=== PATIENT | male | born 1955 | race Caucasian/White ===

== ENCOUNTER 2017-03-14 19:58 | Inpatient (IN) ==
[2017-03-14 20:47] LABS: Hematocrit 22.3 % (37.5-50.1); Immature Platelets 28.3 % (1.1-6.1); Mean Corpuscular HGB Conc 30.5 g/dL (31.6-35.5); Mean Corpuscular Volume 98.2 fL (83.0-100.0); Monocytes # 0.8 K/mcL (0.0-1.3); Nucleated Red Blood Cells 6.7 /100 WBC (0); Red Blood Count 2.27 M/mcL (4.19-5.50)
[2017-03-14 20:49] LABS: INR 1.1; Prothrombin Time 11.7 Seconds (9.4-12.1)
[2017-03-14 20:51] LABS: Activated Partial Thrombo Time 25.7 Seconds (26.0-36.0)
[2017-03-14] MEDS ORDERED: Pantoprazole 40 MG VIAL IVP ONE (20:52)
--- NOTE | 2017-03-14 20:53 | Emergency Department Note ---
Disposition Clinical Impression: Thrombocytopenia, External hemorrhoid, bleeding Anemia Qualifiers: Anemia type: other cause Other causes of anemia: other cause, not classified Qualified Code(s): D64.89 - Other specified anemias Disposition: Admitted As Inpatient Recheck wound or abnormal lab - General Chief Complaint: ED Recheck/Abnormal Lab/Rx Stated Complaint: hgb 6.9 Time Seen by Provider: 03/14/17 20:18 Source: patient Limitations: no limitations Nursing Notes Reviewed: Yes Vital Signs Reviewed: Yes - History of Present Illness HPI Narrative: Patient is here today for a low blood count after he had labs drawn by his primary care provider today. The patient himself is asymptomatic he states his blood count has been trending down over the last several months they have been checking it repeatedly. He has a endoscopy scheduled on March 21 for this reason. His primary care doctor was not aware that he takes ibuprofen daily for chronic back pain for months now. He denies any melena or hematochezia or hematemesis. He is in his baseline state of health the leg completely has some bilateral lower extremity edema. Pt Subjective Complaint: abnormal lab(s) Symptoms Since Prior Visit: no new symptoms Context: called for abnormal lab result Associated symptoms: none - Related Data Home Medications Medication Instructions Recorded Confirmed Buspirone HCl [Buspar] 10 mg PO BID 03/14/17 03/14/17 Hydrochlorothiazide [Microzide] 12.5 mg PO DAILY 03/14/17 03/14/17 Ibuprofen [Advil] 400 mg PO Q6H PRN 03/14/17 03/14/17 Lovastatin [Lovastatin] 40 mg PO HS 03/14/17 03/14/17 OxyCODONE/APAP 5/325 [Percocet 1 - 2 tab PO Q6H PRN 03/14/17 03/14/17 5/325 MG] Trazodone HCl 100 mg PO HS 03/14/17 03/14/17 Allergies Allergy/AdvReac Type Severity Reaction Status Date / Time No Known Allergies Allergy Verified 03/14/17 20:05 All systems ED: reviewed and negative except as stated. Constitutional: Denies: fever, chills Gastrointestinal: Denies: abdominal pain, nausea, vomiting, hematemesis, melena , hematochezia Hematological/Lymphatic: Denies: lymphadenopathy Past Medical History - Past Medical History Source: patient, nursing notes reviewed Medical history: Reports: hypertension - Social History Smoking Status: Current every day smoker Smokeless Tobacco Status: No Alcohol use: Reports: none Drug use: Reports: none Physical Exam - General Limitations: no limitations General appearance: alert, in no apparent distress - Head Head exam: atraumatic, normocephalic, normal inspection - Eye Eye exam: Present: normal appearance, PERRL, EOMI - Expanded Eye Exam Pupils: Left: reactive - ENT ENT exam: normal exam, normal oropharynx, mucous membranes moist - Expanded ENT Exam External ear exam: Present: normal external inspection Mouth exam: Present: normal external inspection Teeth exam: Present: normal inspection Throat exam: Present: normal inspection - Neck Neck exam: Present: normal inspection, full ROM, trachea midline - Chest Chest inspection: Present: normal inspection, symmetric chest wall rise - Respiratory Respiratory exam: Present: normal lung sounds bilaterally - Cardiovascular Cardiovascular exam: Present: regular rate, normal rhythm, normal heart sounds - Abdominal Exam Abdominal exam: Present: soft, Non-Tender. Absent: tenderness, distention, guarding, rebound, rigidity - Rectal Exam Rectal exam: Present: normal rectal tone, hemorrhoids (Inflamed small amount of gross blood) - Extremities Exam Extremities exam: Present: normal inspection, full ROM. Absent: tenderness, pedal edema - Expanded Upper Extremity Exam Shoulder exam: Present: normal inspection, full ROM Arm exam: Present: normal inspection, full ROM Elbow exam: Present: normal inspection, full ROM Forearm/Wrist exam: Present: normal inspection, full ROM Hand exam: Present: normal inspection, full ROM Vascular exam: Normal: capillary refill, radial pulse - Expanded Lower Extremity Exam Hip/Pelvis exam: Present: normal inspection, full ROM Upper leg exam: Present: normal inspection, full ROM Knee exam: Present: normal inspection, full ROM Lower leg exam: Present: normal inspection, full ROM Ankle exam: Present: normal inspection, full ROM Foot/toe exam: Present: normal inspection, full ROM Neurovascular/Tendon exam: Absent: motor deficit, sensory deficit, tendon deficit - Back Exam Back exam: Present: normal inspection, full ROM. Absent: tenderness - Neurological Exam Neurological exam: Present: alert, oriented X3 - Expanded Neurological Exam Patient oriented to: Present: person, place, time Coma Scale Eye Opening: Spontaneous Coma Scale Motor Response: Obeys Commands Coma Scale Verbal Response: Oriented Coma Scale Total: 15 - Psychiatric Psychiatric exam: Present: normal affect, normal mood - Skin Skin exam: Present: warm, dry, intact, normal color Course Vital Signs Temperature 98.3 F 03/14/17 20:00 Pulse Rate 86 03/14/17 20:00 Respiratory Rate 18 03/14/17 20:00 Blood Pressure 161/72 03/14/17 20:00 O2 Sat by Pulse Oximetry 100 03/14/17 20:00 Temperature 98.3 F 03/14/17 20:00 Pulse Rate 72 03/14/17 21:24 Respiratory Rate 12 03/14/17 21:24 Blood Pressure 142/76 03/14/17 21:24 O2 Sat by Pulse Oximetry 100 03/14/17 21:24 Oxygen Delivery Oxygen Delivery Room Air Recheck wound or abnormal lab - Lab Data Result diagrams: 03/14/17 20:35 03/14/17 20:35 Lab Results 03/14/17 03/14/17 03/14/17 Range/Units 20:35 20:35 20:35 WBC 6.3 (4.3-11.1) K/mcL RBC 2.27 L (4.19-5.50) M/mcL Hgb 6.8 L (12.9-16.9) g/dL Hct 22.3 L (37.5-50.1) % MCV 98.2 (83.0-100.0) fL MCH 30.0 (28.0-33.3) pg MCHC 30.5 L (31.6-35.5) g/dL RDW 22.0 H (11.5-14.5) % Plt Count 24 L* (140-400) K/mcL MPV TNP Seg Neutrophils % 30.0 % Band Neutrophils % 8.0 H (0-4) % Lymphocytes % 50.0 % Monocytes % 12.0 % Neutrophils # 2.4 (1.6-8.9) K/mcL Lymphocytes # 3.2 (0.6-4.6) K/mcL Monocytes # 0.8 (0.0-1.3) K/mcL Nucleated RBCs/100 WBC 6.7 H (0) /100 WBC Reactive Lymphocytes Present A (Not Present) Platelet Estimate Marked Decrease L (Normal) Immature Plt Fraction 28.3 H (1.1-6.1) % Poikilocytosis 1+ A (Not Present) Anisocytosis 2+ A (Not Present) Schistocytes 1+ A (Not Present) PT 11.7 (9.4-12.1) Seconds INR 1.1 APTT 25.7 L (26.0-36.0) Seconds Sodium 141 (136-145) mEq/L Potassium 3.8 (3.5-4.5) mEq/L Chloride 106 (98-109) mEq/L Carbon Dioxide 26 (19-29) mEq/L BUN 22 (8-26) mg/dL Creatinine 0.88 (0.72-1.25) mg/dL Est GFR ( Amer) > 60 (> 60) Est GFR (Non-Af Amer) > 60 (> 60) BUN/Creatinine Ratio 25 (6-26) Glucose 96 (70-99) mg/dL Calculated Osmolality 295 (280-300) Calcium 9.7 (8.6-10.8) mg/dL Iron (65-175) mcg/dL % Saturation (20-55) % Transferrin (174-364) mg/dL Antibody Screen 03/14/17 03/14/17 Range/Units 20:35 20:35 WBC (4.3-11.1) K/mcL RBC (4.19-5.50) M/mcL Hgb (12.9-16.9) g/dL Hct (37.5-50.1) % MCV (83.0-100.0) fL MCH (28.0-33.3) pg MCHC (31.6-35.5) g/dL RDW (11.5-14.5) % Plt Count (140-400) K/mcL MPV Seg Neutrophils % % Band Neutrophils % (0-4) % Lymphocytes % % Monocytes % % Neutrophils # (1.6-8.9) K/mcL Lymphocytes # (0.6-4.6) K/mcL Monocytes # (0.0-1.3) K/mcL Nucleated RBCs/100 WBC (0) /100 WBC Reactive Lymphocytes (Not Present) Platelet Estimate (Normal) Immature Plt Fraction (1.1-6.1) % Poikilocytosis (Not Present) Anisocytosis (Not Present) Schistocytes (Not Present) PT (9.4-12.1) Seconds INR APTT (26.0-36.0) Seconds Sodium (136-145) mEq/L Potassium (3.5-4.5) mEq/L Chloride (98-109) mEq/L Carbon Dioxide (19-29) mEq/L BUN (8-26) mg/dL Creatinine (0.72-1.25) mg/dL Est GFR ( Amer) (> 60) Est GFR (Non-Af Amer) (> 60) BUN/Creatinine Ratio (6-26) Glucose (70-99) mg/dL Calculated Osmolality (280-300) Calcium (8.6-10.8) mg/dL Iron 109 (65-175) mcg/dL % Saturation 35 (20-55) % Transferrin 223 (174-364) mg/dL Antibody Screen NEGATIVE
[2017-03-14 20:59] LABS: BUN/Creatinine Ratio 25 (6-26); Blood Urea Nitrogen 22 mg/dL (8-26); Calcium 9.7 mg/dL (8.6-10.8); Carbon Dioxide 26 mEq/L (19-29); Chloride 106 mEq/L (98-109); Glucose 96 mg/dL (70-99); Osmolality,Calculated 295 (280-300); Potassium 3.8 mEq/L (3.5-4.5); Sodium 141 mEq/L (136-145); eGFR For African Americans > 60 (> 60); eGFR For Non-African Americans > 60 (> 60)
[2017-03-14 21:03] LABS: Hemoglobin 6.8 g/dL (12.9-16.9)
[2017-03-14 21:05] LABS: Platelet Count 24 K/mcL (140-400)
[2017-03-14 21:13] LABS: Lymphocytes # 3.2 K/mcL (0.6-4.6); Neutrophils # 2.4 K/mcL (1.6-8.9)
[2017-03-14 21:14] LABS: Platelet Estimate Marked Decrease (Normal); Reactive Lymphocytes Present (Not Present)
[2017-03-14 21:15] LABS: Anisocytosis 2+ (Not Present); Poikilocytosis 1+ (Not Present); Schistocytes 1+ (Not Present)
[2017-03-14 21:34] LABS: % Iron Saturation 35 % (20-55); Iron 109 mcg/dL (65-175); Transferrin 223 mg/dL (174-364)
[2017-03-14] MEDS ORDERED: Ondansetron 4 MG/2 ML VIAL IVP PRN (22:33)
[2017-03-14 23:17] LABS: Hemoglobin 6.1 g/dL (12.9-16.9)
[2017-03-14 23:19] LABS: Immature Platelets 25.2 % (1.1-6.1); Mean Corpuscular HGB Conc 30.5 g/dL (31.6-35.5); Mean Corpuscular Volume 98.5 fL (83.0-100.0); Monocytes # 0.8 K/mcL (0.0-1.3); Nucleated Red Blood Cells 5.6 /100 WBC (0); Red Blood Count 2.03 M/mcL (4.19-5.50); Red Cell Distribution Width 21.9 % (11.5-14.5); Retculocyte # 0.07 M/mcL (0.05-0.10); Reticulocyte % 3.6 % (1.6-2.8)
[2017-03-14 23:24] LABS: Platelet Count 21 K/mcL (140-400)
[2017-03-14 23:44] LABS: Lymphocytes # 3.5 K/mcL (0.6-4.6); Neutrophils # 1.4 K/mcL (1.6-8.9); Platelet Estimate Marked Decrease (Normal); Poikilocytosis 2+ (Not Present); Schistocytes 2+ (Not Present)
[2017-03-14 23:45] LABS: Anisocytosis 1+ (Not Present)
[2017-03-14 23:47] LABS: Polychromasia 1+ (Not Present)
--- NOTE | 2017-03-14 23:48 | Internal Med History&Physical ---
<Chris East - Last Filed: 03/15/17 00:29> Date of Encounter: 03/15/17 Time of Encounter: 23:46 Assessment and Plan (1) Anemia Current visit: Yes Status: Acute normocytic normochormic anemia with thrombocytopenia unclear etiology No evidence of bleeding on exam rectal exam as per ER states he has bleeding hemorrhoids abdominal exam benign: no organomegaly Will order complete workup Surgery consulted hemotolgy consulted [facility] and platelets ordered Three etiology of anemia: RBC destruction, production defect or bleeding Patient states he has had progressive decline in hgb since september. Baseline is 13. Last month hgb was 9.8. Never worked up in past. Has on episode of anemia in past in without need for transfusion. NO family hx of anemia, hematological disorders Qualifiers: Anemia type: other cause Other causes of anemia: other cause, not classified Qualified Code(s): D64.89 - Other specified anemias (2) Thrombocytopenia Current visit: Yes Status: Acute etiology unclear WIll rule of ITP/TTP/HUS concerning that patient has schistocytes on CBC replace platelets. Hematology consulted If TTP?ITP confirmed will need transfer for plasmapharesis (3) DVT prophylaxis Current visit: Yes Status: Acute EPCD (4) External hemorrhoid, bleeding Current visit: Yes Status: Acute as noted above. no profusely bleeding. ER mentioned couple dots patient denies melena and hematochezia will monitor. Internal Medicine - H&P: HPI Chief complaint: Low hemoglobin Admitted From: Home Plans for Post Hospital Care: Home History of present illness: Mr. Solis is a 61 year old male who presents from his PCPs office with chief complaint of low hemoglobin of 6.8. Patient denies any active signs of bleeding including hemoptysis, hematemesis, melena, hematochezia. States his hemoglobin has been dropping since September. Baseline hemoglobin is 13. One month ago patient's hemoglobin was 9.8. Reports use of iburophen 800g daily for several years in the past for back pain from multiple back surgeries. Denies previous work up for anemia. has hx of hemorrhoids and gastritis . Reports worsening sob with exertion that started few months ago, lower extremity edema, and generalized fatigue. Usually very active around house, but lately cannot do many activities due to fatigue. Denies family hx of anemia. Reports hx of lyme disease. Reports hx of anemia in the where HGB dropped to 7 but denies receiving transfusion, workup. Hx of multiple colonscopy and EGD that patient states relates to weight loss in the past but nothing was found. Hx of prostate cancer in father. Past Med Surg Social Fam HX - Past Medical History Medical history: hypertension Psychiatric history: anxiety - Past Surgical History Surgical History: other (back surgery) - Social History Smoking Status: Current every day smoker Smokeless Tobacco Status: No Alcohol use: none Drug use: none - Family History Mother Living Status: Father Living Status: Hx Family Cancer: Yes (Prostate) Internal Medicine - H&P: Meds Buspirone HCl [Buspar] 10 mg PO BID 03/14/17 [History] Hydrochlorothiazide [Microzide] 12.5 mg PO DAILY 03/14/17 [History] Ibuprofen [Advil] 400 mg PO Q6H PRN 03/14/17 [History] Lovastatin [Lovastatin] 40 mg PO HS 03/14/17 [History] OxyCODONE/APAP 5/325 [Percocet 5/325 MG] 1 - 2 tab PO Q6H PRN 03/14/17 [History] Trazodone HCl 100 mg PO HS 03/14/17 [History] Allergies No Known Allergies Allergy (Verified 03/14/17 20:05) All Systems PM: A 10-system review of systems was performed and is negative for pertinent findings except as documented above in the HPI. Review of systems: Constitutional: Denies fever, chills HEENT: Denies headache, vision changes, neck pain, sore throat, rhinorrhea Heart: Denies chest pain palpitations Lungs: reports sob, denies cough Abdomen: Denies abdominal pain nausea vomiting diarrhea Back: Denies back pain Kidney: Denies dysuria, hematuria Extremities:reports LE swelling denies pain Neuro: Denies numbness, and tingling - Constitutional Vitals: Temp Pulse Resp BP Pulse Ox 98.4 F 72 16 166/86 99 03/14/17 22:21 03/14/17 22:21 03/14/17 22:21 03/14/17 22:21 03/14/17 22:21 - Other Additional findings: General: Alert and oriented to place time and situation. Without distress HEENT: Head atraumatic, normocephalic, EOMI, PERRLA, neck nontender to palpation , absent Lymphadenopathy, Moist Mucous Membranes, Heart: Regular rate and rhythm with no murmur Lungs: Clear to auscultation bilaterally Abdomen: Soft nontender, nondistended positive bowel sounds Extremities: Absent pedal edema, Skin: warm and dry no evidence of bleeding/ purapura Neuro: Cranial nerves II through XII intact, sensation equal bilaterally, strength upper and lower extremity 5/5, alert oriented 3 Vascular: Pedal and radial pulses 2 out of 4 Internal Med - H&P Results - Labs CBC & Chem 7: 03/14/17 23:06 03/14/17 23:06 Labs: Short CBC 03/14/17 Range/Units 23:06 WBC 5.7 (4.3-11.1) K/mcL Hgb 6.1 L (12.9-16.9) g/dL Hct 20.0 L (37.5-50.1) % Plt Count 21 L* (140-400) K/mcL <Manjit Bowser - Last Filed: 03/15/17 01:27> Date of Encounter: 03/15/17 Time of Encounter: 00:10 - Constitutional Constitutional: weight loss, no chills, no fever(s), no night sweats - EENT Eyes: no blurry vision, no change in vision Ears: no ear pain, no tinnitus Nose, mouth and throat: no nasal congestion, no sinus pain, no sore throat - Cardiovascular Cardiovascular ROS IM: dyspnea on exertion, no chest pain, no dyspnea, no paroxysmal nocturnal dyspnea, no syncope - Respiratory Respiratory: dyspnea on exertion, no cough, no hemoptysis, no chest congestion, no change in phlegm color - Gastrointestinal Gastrointestinal: no abdominal pain, no change in stool character, no coffee ground emesis, no diarrhea, no hematemesis, no hematochezia, no melena, no vomiting - Genitourinary Genitourinary ROS male: no dysuria, no flank pain, no hematuria - Musculoskeletal Musculoskeletal ROS IM: arthralgias, back pain - Integumentary Integumentary IM: unusual bruising, no erythema, no rash, no jaundice - Neurological Neurological ROS: no abnormal hearing, no abnormal movements, no abnormal speech , no behavioral changes, no confusion, no disequilibrium, no dizziness, no focal weakness, no headache(s), no numbness, no paresthesias, no weakness - Psychiatric Psychiatric: no anxiety, no confusion, no depression - Endocrine Endocrine IM: no polydipsia, no polyuria - Hematologic/Lymphatic Hematologic/Lymphatic: easy bruising, no lymphadenopathy - Allergic/Immunologic Allergic/Immunologic: no wheezing, no GI upset with certain foods - Constitutional Vitals: Temp Pulse Resp BP Pulse Ox 97.9 F 67 20 171/78 99 03/15/17 00:36 03/15/17 00:36 03/15/17 00:36 03/15/17 00:36 03/15/17 00:36 General appearance: Present: cooperative, A&O X 3, pleasant, no acute distress, answers questions appropriately - Head Head exam: Present: atraumatic, normal inspection - Eye Eye exam: Present: EOMI, normal appearance, PERRL. Absent: scleral icterus Pupils: Present: normal accommodation - ENT ENT exam: Present: mucous membranes dry - Neck Neck exam general surgery: Present: full ROM, supple. Absent: tenderness - Respiratory Respiratory exam: Present: CTAB. Absent: rales, rhonchi, wheezes - Cardiovascular Cardiovascular exam: Present: RRR, +S1, +S2. Absent: diastolic murmur, systolic murmur - GI/Abdominal GI/Abdominal exam: Present: normal bowel sounds, soft. Absent: hepatomegaly, mass, splenomegaly, tenderness - Extremities Exam Extremities exam: Present: full ROM, warm. Absent: calf tenderness, joint swelling, normal capillary refill (delayed) - Back Exam Back exam: Absent: CVA tenderness (L), CVA tenderness (R) - Neurological Exam Neurological exam: Present: alert, CN II-XII intact, oriented X3, no focal deficits, strengths equal and symetr throughout Internal Med - H&P Results - Labs CBC & Chem 7: 03/14/17 23:06 03/14/17 23:06 Labs: Short CBC 03/14/17 Range/Units 23:06 WBC 5.7 (4.3-11.1) K/mcL Hgb 6.1 L (12.9-16.9) g/dL Hct 20.0 L (37.5-50.1) % Plt Count 21 L* (140-400) K/mcL Neutrophils # 1.4 L (1.6-8.9) K/mcL BMP 03/14/17 23:06 Sodium 139 Potassium 4.0 Chloride 108 Carbon Dioxide 24 BUN 22 Creatinine 0.83 Glucose 88 Calcium 8.7 Liver Function 03/14/17 Range/Units 23:06 Total Bilirubin 1.0 (0.2-1.2) mg/dL AST 29 (5-34) Units/L ALT 15 (0-55) Units/L Alkaline Phosphatase 71 (38-126) Units/L Albumin 3.7 (3.5-5.0) g/dL - Attending Attestation I discussed the patient [place], PMH, ROS, lab data, and exam findings with Dr. East. I then saw and examined patient independently as well. I also met with his and two daughters. One daughter is an RN and provides much history. Patient has symptomatic anemia and was referred to ER by his PCP. Per his daughter, patient's hemoglobin was 9.8 one month ago and normal (13) in September of this year. Additionally, his platelet count has drifted from 130K in September to 24 today. He reports no GI bleeding and/or any bleeding whatsoever. He has a history of hemorrhoids, but he denies any rectal bleeding recently. I reviewed his labs and then called hematology for consultation and opinion regarding concern for hemolytic process and schistocytes on automated differential. I spoke with Dr. Ashley by telephone, and he requested a peripheral blood smear and that he would come in to review the blood smear. I am awaiting his feedback currently. Presently, we are transfusing him with PRBC 's and platelets. I agree with consult to Dr. Capellan for possible EGD. However, we will need further guidance from hematology before proceeding. Additionally, his thrombocytopenia needs to be corrected before proceeding with EGD. Other than my comments above and noted exam findings, I agree with Dr. East's assessment and plan.
[2017-03-15 00:01] LABS: Alanine Aminotransferase 15 Units/L (0-55); Albumin 3.7 g/dL (3.5-5.0); Albumin/Globulin Ratio 1.5 (1.1-2.2); Alkaline Phosphatase 71 Units/L (38-126); Aspartate Amino Transferase 29 Units/L (5-34); BUN/Creatinine Ratio 27 (6-26); Blood Urea Nitrogen 22 mg/dL (8-26); Calcium 8.7 mg/dL (8.6-10.8); Carbon Dioxide 24 mEq/L (19-29); Chloride 108 mEq/L (98-109); Globulin 2.4 g/dL (2.4-3.5); Glucose 88 mg/dL (70-99); Osmolality,Calculated 291 (280-300); Sodium 139 mEq/L (136-145); Total Protein 6.1 g/dL (6.0-8.3); eGFR For African Americans > 60 (> 60); eGFR For Non-African Americans > 60 (> 60)
[2017-03-15] MEDS ORDERED: 0.9 % Sodium Chloride 250 ML ONE ×5 (00:21→06:59)
[2017-03-15 00:31] LABS: Folate 6.1 ng/mL (7.0-31.4)
[2017-03-15] MEDS ORDERED: hydrALAZINE 10 MG TABLET PO PRN (01:01)
[2017-03-15 01:35] LABS: Immature Platelets 26.6 % (1.1-6.1); Mean Corpuscular HGB Conc 31.1 g/dL (31.6-35.5); Mean Corpuscular Hemoglobin 30.3 pg (28.0-33.3); Mean Corpuscular Volume 97.4 fL (83.0-100.0); Nucleated Red Blood Cells 5.1 /100 WBC (0); Red Blood Count 1.95 M/mcL (4.19-5.50); Red Cell Distribution Width 21.6 % (11.5-14.5)
[2017-03-15 01:48] LABS: Hemoglobin 5.9 g/dL (12.9-16.9); Platelet Count 19 K/mcL (140-400)
[2017-03-15 01:49] LABS: Alanine Aminotransferase 15 Units/L (0-55); Albumin 3.5 g/dL (3.5-5.0); Albumin/Globulin Ratio 1.5 (1.1-2.2); Alkaline Phosphatase 68 Units/L (38-126); Aspartate Amino Transferase 27 Units/L (5-34); BUN/Creatinine Ratio 29 (6-26); Bilirubin,Total 0.8 mg/dL (0.2-1.2); Blood Urea Nitrogen 21 mg/dL (8-26); Calcium 8.8 mg/dL (8.6-10.8); Carbon Dioxide 26 mEq/L (19-29); Chloride 108 mEq/L (98-109); Globulin 2.3 g/dL (2.4-3.5); Glucose 85 mg/dL (70-99); Osmolality,Calculated 292 (280-300); Potassium 3.7 mEq/L (3.5-4.5); Sodium 140 mEq/L (136-145); Total Protein 5.8 g/dL (6.0-8.3); eGFR For African Americans > 60 (> 60); eGFR For Non-African Americans > 60 (> 60)
[2017-03-15] MEDS: Pantoprazole 40 MG in 0.9 % Sodium Chloride Mini Bag 100 ML IVC SCH ×2 (02:10→06:10)
--- NOTE | 2017-03-15 02:15 | Oncology Inp Consult Note ---
Date of Encounter: 03/15/17 Time of Encounter: 02:06 Assessment and Plan (1) Cytopenia Status: Acute Assessment and plan: I explained to Mr. Solis that in view of the presence of bycytopenia ( anemia and thrombocytopenia) that diagnosis differential include a primary bone marrow disorder. I explained that a bone marrow biopsy would be needed to establish a diagnosis and provide further recommendations. Differential diagnosis includes MDS ( especially in view of the subacute clinical course, since last September), acute leukemia ( especially in view of the recent fast deterioration of his cytopenias and the presence of inmmature white blood cells in his blood smear), another primary bone marrow disorders ( such as myelofibrosis, or bone marrow infiltration for a secondary malignancy). Benign conditions are also possible, but at this time it's necessary to rule out a primary malignant bone marrow disorder. His clinical picture is not consistent with TTP/HUS, even in the presence of a very few schistocytes in his blood smear ( 1 percent) in view of normal creatinine, total bilirrubin, and just slight elevation of LDH. He expressed agreement to proceed with a bone marrow biopsy tomorrow( that will be scheduled under IR guidance). - If his BMX is consistent with AML, his clinical presentation would not be consistent with APL ( in the presence of normal APTT, PT and lack of visualization of luis rods in the blood smear). we will check fibrinogen. - Clinically his picture is not consistent with ITP. - At this time management will consist in supportive treatment with transfusion of blood for HCT less than 21 percent ( or Hb less than 7) and one unit of platelets for counts less than 20K ( or 50 K if there is active bleeding). - Data of Consult Requesting Physician: Mamie Cesar MD Primary Care Provider: Kev Lenz MD - Consult Narrative Reason for consult: anemia and thrombocytopenia. History of present illness: Mr. Solis is a 61 year old male with history of HTN, chronic back pain ( hx of back surgery) referred from PCP's office due to abnormal labs, Hemoglobin of 6.8. Patient was seen with his family at the bedside. His daughter who works as a nurse reports that his PCP monitor his blood test every 3 months. She reports that his red cell counts ( platelets and red cell counts) have been dropping since September, with previous labs showing normal red cell and platelet values. He reports noticing dyspnea of exerction going on for the last few months. He reports that lately has noticed easy bruising, but denies any episode of bleeding. He reports not recent infections. He reports not significant change on his diet ( not vegeterian). Hospital course: CBC show Hb 6.8. Repeated labs revealed dropped to 5.9, blood being transfused. Labs not suggestive of hemolysis or TTP in view of normal total bilirrubin, lack of espherocytes in blood smear, normal renal function and not OUTPATIENT SERVICES DIRECTOR manifestations. He is also receiving platelets for value of 19K. APTT and INR were not elevated. Past Med Surg Social Fam HX - Past Medical History Medical history: hypertension Psychiatric history: anxiety - Past Surgical History Surgical History: other (back surgery) - Social History Smoking Status: Current every day smoker Smokeless Tobacco Status: No Alcohol use: none Drug use: none - Family History Mother Living Status: Father Living Status: Hx Family Cancer: Yes (Prostate) Medications and Allergies Buspirone HCl [Buspar] 10 mg PO BID 03/14/17 [History] Hydrochlorothiazide [Microzide] 12.5 mg PO DAILY 03/14/17 [History] Ibuprofen [Advil] 400 mg PO Q6H PRN 03/14/17 [History] Lovastatin [Lovastatin] 40 mg PO HS 03/14/17 [History] OxyCODONE/APAP 5/325 [Percocet 5/325 MG] 1 - 2 tab PO Q6H PRN 03/14/17 [History] Trazodone HCl 100 mg PO HS 03/14/17 [History] Allergies No Known Allergies Allergy (Verified 03/14/17 20:05) Constitutional: Present: excessive sweating, fatigue, malaise. Absent: headache (s), increased appetite Eyes: Absent: loss of vision, photophobia Cardiovascular: Present: dyspnea on exertion, irregular heart rhythm. Absent: chest pain with activity, leg edema, leg ulcers Respiratory: Present: dyspnea, dyspnea on exertion. Absent: cough, hemoptysis Gastrointestinal: Absent: abdominal pain, dysphagia, hematemesis, hematochezia, melena Musculoskeletal: Present: arthralgias, back pain. Absent: abnormal gait, muscle weakness, myalgias Integumentary: Present: new lesions Neurological: Absent: abnormal gait, focal weakness, lack of coordination Psychiatric: Absent: behavioral changes, confusion Endocrine: Absent: excessive sweating Hematologic/Lymphatic: Present: easy bleeding Allergic/Immunologic: Absent: wheezing Oncology - Exam - Constitutional Vitals: Temp Pulse Resp BP Pulse Ox 98.1 F 66 20 146/73 99 03/15/17 01:36 03/15/17 01:36 03/15/17 01:36 03/15/17 01:36 03/15/17 01:36 General appearance: average body habitus - Head Head exam: Present: normal inspection - Eye Eye exam: Present: EOMI - ENT ENT exam: Present: normal oropharynx - Neck Neck exam: Present: normal inspection - Respiratory Respiratory exam: Present: CTAB - Cardiovascular Cardiovascular exam: Present: RRR - GI/Abdominal GI/Abdominal exam: Present: normal bowel sounds. Absent: hypoactive bowel sounds, organomegaly - Extremities Exam Extremities exam: Present: normal inspection. Absent: pedal edema, tenderness - Back Exam Back exam: Present: normal inspection - Neurological Exam Neurological exam: Present: CN II-XII intact, oriented X3 - Psychiatric Psychiatric exam: Present: normal affect - Skin Additional comments: superficial bruises. Consult Discharge Plan - Plan Referrals: Kev Lenz MD [Primary Care Provider] -
[2017-03-15 02:19] LABS: Lymphocytes # 3.4 K/mcL (0.6-4.6); Monocytes # 0.5 K/mcL (0.0-1.3); Neutrophils # 1.3 K/mcL (1.6-8.9)
[2017-03-15 02:20] LABS: Polychromasia 1+ (Not Present); Schistocytes 1+ (Not Present)
[2017-03-15 02:21] LABS: Anisocytosis 2+ (Not Present)
[2017-03-15 02:22] LABS: Poikilocytosis 2+ (Not Present)
[2017-03-15 02:23] LABS: Platelet Estimate Marked Decrease (Normal)
[2017-03-15] MEDS ORDERED: *HR* OxyCODONE/APAP 5/325 TABLET PO PRN (02:25)
[2017-03-15 02:26] LABS: Ferritin 261 ng/ml (22-275)
--- NOTE | 2017-03-15 02:59 | Event Note ---
Date of Encounter: 03/15/17 Time of Encounter: 02:[address] Ashley earlier, and he does not feel patient has TTP. He is concerned for acute leukemia. He recommends bone marrow biopsy in the morning and probable transfer to [facility] or other tertiary care center. Hgb and platelet counts continue to drop. I therefore called [facility]/ [facility] requesting transfer, but they have no beds available. I then called [facility], but they do not treat acute leukemia patients and state only [facility] treats acute leukemia in [place]. I went to speak with patient and family and patient complained of a headache. I therefore ordered STAT head CT to rule out intracranial bleeding. He is currently receiving PRBC and platelet transfusion. I will talk with patient and family again after CT head. If CT negative, will proceed with bone marrow biopsy in the morning as planned and continue to coordinate transfer. I recommended consideration of [facility], but patient prefers [place]. I appreciate Dr. Ashley's assistance tonight.
[2017-03-15 03:08] LABS: Bilirubin,Urine Negative (Negative); Blood,Urine Negative (Negative); Clarity,Urine Clear (Clear); Color,Urine Yellow (Yellow); Glucose,Urine (UA) Normal (Normal); Ketones,Urine Negative (Negative); Leukocyte Esterase,Urine Negative (Negative); Nitrite,Urine Negative (Negative); PH,Urine 6.5 pH Units (5.0-8.0); Protein,Urine Negative (Neg-Trace); Urobilinogen,Urine Normal (Normal)
--- NOTE | 2017-03-15 05:38 | Event Note ---
Date of Encounter: 03/15/17 Time of Encounter: 05:31 CT head was negative. His hemoglobin and platelet count continue to decline. I spoke with patient and family multiple times throughout the night and recommended transfer to a tertiary care medical center for diagnosis and treatment of suspected acute leukemia. They are all agreeable. Because [facility] is full and has no beds, I called [facility] and they , too, are full and have no beds. I spoke with patient and family again, and they chose to go to [place], specifically [facility]. I therefore called [facility] and spoke with Dr. Rivero ([facility]) and discussed the case with her. She agrees that patient likely has leukemia and needs urgent diagnosis and treatment. She and [facility] accepted patient in transfer. She wanted me to emphasize to patient and family that he will likely be hospitalized for roughly 1 [facility]. This may pose a hardship on the family. I explained all that to patient and family, and they are agreeable to transfer. Patient is currently being transfused PRBC's and platelets while awaiting transfer arrangements.
[2017-03-15 07:13] LABS: Immature Platelets 12.1 % (1.1-6.1); Mean Corpuscular HGB Conc 32.1 g/dL (31.6-35.5); Mean Corpuscular Hemoglobin 30.4 pg (28.0-33.3); Mean Corpuscular Volume 94.9 fL (83.0-100.0); Red Blood Count 2.53 M/mcL (4.19-5.50); Red Cell Distribution Width 20.1 % (11.5-14.5)
[2017-03-15 07:21] VITALS: BP 150/83
[2017-03-15 07:21] LABS: Hemoglobin 7.7 g/dL (12.9-16.9); Platelet Count 49 K/mcL (140-400)
--- NOTE | 2017-03-15 07:39 | General Surgery Consult Note ---
Date of Encounter: 03/15/17 Time of Encounter: 06:30 Past Med Surg Social Fam HX - Past Medical History Medical history: hypertension Psychiatric history: anxiety - Past Surgical History Surgical History: other (back surgery) - Social History Smoking Status: Current every day smoker Smokeless Tobacco Status: No Alcohol use: none Drug use: none - Family History Mother Living Status: Father Living Status: Hx Family Cancer: Yes (Prostate) Medications and Allergies Buspirone HCl [Buspar] 10 mg PO BID 03/14/17 [History] Hydrochlorothiazide [Microzide] 12.5 mg PO DAILY 03/14/17 [History] Ibuprofen [Advil] 400 mg PO Q6H PRN 03/14/17 [History] Lovastatin [Lovastatin] 40 mg PO HS 03/14/17 [History] OxyCODONE/APAP 5/325 [Percocet 5/325 MG] 1 - 2 tab PO Q6H PRN 03/14/17 [History] Trazodone HCl 100 mg PO HS 03/14/17 [History] Allergies No Known Allergies Allergy (Verified 03/14/17 20:05) Review of Systems All systems PM: A 10-system review of systems was performed and is negative for pertinent findings except as documented above in the HPI. General Surgery Exam Initial Vital Signs Temp Pulse Resp BP Pulse Ox 98.3 F 86 18 161/72 100 03/14/17 20:00 03/14/17 20:00 03/14/17 20:00 03/14/17 20:00 03/14/17 20:00 Exam Initial Vital Signs Temp Pulse Resp BP Pulse Ox 98.3 F 86 18 161/72 100 03/14/17 20:00 03/14/17 20:00 03/14/17 20:00 03/14/17 20:00 03/14/17 20:00 Results - Labs 03/15/17 07:02 03/15/17 01:22 Abnormal lab results RBC 2.53 M/mcL (4.19-5.50) L 03/15/17 07:02 Hgb 7.7 g/dL (12.9-16.9) L D 03/15/17 07:02 Hct 24.0 % (37.5-50.1) L 03/15/17 07:02 RDW 20.1 % (11.5-14.5) H 03/15/17 07:02 Plt Count 49 K/mcL (140-400) L D 03/15/17 07:02 Promyelocytes % 2.0 % (0) H 03/15/17 01:22 Neutrophils # 1.3 K/mcL (1.6-8.9) L 03/15/17 01:22 Nucleated RBCs/100 WBC 5.1 /100 WBC (0) H 03/15/17 01:22 Reactive Lymphocytes Present (Not Present) A 03/14/17 20:35 Platelet Estimate Marked Decrease (Normal) L 03/15/17 01:22 Immature Plt Fraction 12.1 % (1.1-6.1) H 03/15/17 07:02 Polychromasia 1+ (Not Present) A 03/15/17 01:22 Poikilocytosis 2+ (Not Present) A 03/15/17 01:22 Anisocytosis 2+ (Not Present) A 03/15/17 01:22 Schistocytes 1+ (Not Present) A 03/15/17 01:22 Percent Retic 3.6 % (1.6-2.8) H 03/14/17 23:06 APTT 25.7 Seconds (26.0-36.0) L 03/14/17 20:35 BUN/Creatinine Ratio 29 (6-26) H 03/15/17 01:22 Lactate Dehydrogenase 365 Units/L (159-327) H 03/14/17 23:06 Serum Total Protein 5.8 g/dL (6.0-8.3) L 03/15/17 01:22 Globulin 2.3 g/dL (2.4-3.5) L 03/15/17 01:22 Vitamin B12 1227 pg/mL (213-816) H 03/14/17 23:06 Folate 6.1 ng/mL (7.0-31.4) L 03/14/17 23:06 All other labs normal. Consult Discharge Plan - Plan Referrals: Kev Lenz MD [Primary Care Provider] -
--- NOTE | 2017-03-15 11:45 | Event Note ---
<Anthony Finch - Last Filed: 03/15/17 11:43> Date of Encounter: 03/15/17 Time of Encounter: 06:10 Patient was seen and examined by Dr. Capellan. Surgery agrees with transfer to [facility] for acute leukemia management. No emergent endoscopy indicated at this time. Thank you. <Jarett Capellan - Last Filed: 03/16/17 08:17> Date of Encounter: 03/15/17 The patient is seen and evaluated on morning rounds. I agree with transfer for further diagnostic workup. GI endoscopy during the convalescent period May be helpful. Jarett Capellan MD FACS
== END 2017-03-15 07:34 | disposition critical access hospital (66) | DRG 836 ==
LOC: EMEROO 19:58 → 3ANU 19:58
PROVIDERS: ADMIT Internal Medicine; ATTEND Internal Medicine

== ENCOUNTER 2017-09-22 11:13 | Inpatient (IN) ==
--- NOTE | 2017-09-22 11:29 | Emergency Department Note ---
Disposition Clinical Impression: Pancytopenia, Lactic acidosis, Proctocolitis Disposition: Admitted As Inpatient Condition: Fair Referrals: Kev Lenz MD [Primary Care Provider] - Forms: ED Satisfaction Letter General Adult HPI - General Chief complaint: ED Shortness of Breath/Dyspnea Stated complaint: ROSALBA, cancer pt (MDS) Time Seen by Provider: 09/22/17 11:22 Source: patient Limitations: no limitations - History of Present Illness Pain Scale: 10 - Related Data Home Medications Medication Instructions Recorded Confirmed Buspirone HCl [Buspar] 10 mg PO BID 03/14/17 09/22/17 Ibuprofen [Advil] 400 mg PO Q6H PRN 03/14/17 09/22/17 Lovastatin [Lovastatin] 40 mg PO HS 03/14/17 09/22/17 Trazodone HCl 100 mg PO HS 03/14/17 09/22/17 Oxycodone HCl [Oxaydo] 10 mg PO Q6H PRN 08/16/17 09/22/17 Previous Rx's Medication Instructions Recorded Magic Mouthwash [Magic Mouthwash 10 ml PO QID PRN #240 ml 05/24/17 BLM] Nystatin [Nystatin Suspension] 500,000 units PO QID PRN #120 ml 05/24/17 Ondansetron [Zofran] 8 mg PO Q8HR PRN #90 tablet 05/24/17 Prochlorperazine Maleate 10 mg PO Q6HR PRN #90 tablet 05/24/17 [Compazine] Docusate [Colace] 100 mg PO BID #60 capsule 09/20/17 Polyethylene Glycol 3350 [MiraLAX] 17 gm PO DAILY #30 powd.pack 09/21/17 Allergies Allergy/AdvReac Type Severity Reaction Status Date / Time No Known Allergies Allergy Verified 09/11/17 13:08 Past Medical History - Past Medical History Medical history: Reports: cancer, hypertension Surgical history: Reports: other Psychiatric history: Reports: anxiety - Social History Smoking Status: Former smoker Smokeless Tobacco Status: No Alcohol use: Reports: none Drug use: Reports: none Physical Exam - General Limitations: no limitations General appearance: alert, in no apparent distress Course Vital Signs Temperature 99.6 F 09/22/17 11:17 Pulse Rate 113 09/22/17 11:17 Respiratory Rate 22 09/22/17 11:17 Blood Pressure 81/52 09/22/17 11:17 O2 Sat by Pulse Oximetry 97 09/22/17 11:17 Temperature 99.6 F 09/22/17 11:17 Pulse Rate 88 09/22/17 14:54 Respiratory Rate 20 09/22/17 14:54 Blood Pressure 105/56 09/22/17 14:54 O2 Sat by Pulse Oximetry 99 09/22/17 14:54 Oxygen Delivery Oxygen Delivery Room Air Medical Decision Making - Lab Data Result diagrams: 09/22/17 11:35 09/22/17 11:35 Lab Results 09/22/17 09/22/17 09/22/17 Range/Units 11:35 11:35 11:35 WBC 3.9 L (4.3-11.1) K/mcL RBC 2.84 L (4.19-5.50) M/mcL Hgb 9.9 L D (12.9-16.9) g/dL Hct 27.4 L (37.5-50.1) % MCV 96.5 (83.0-100.0) fL MCH 34.9 H (28.0-33.3) pg MCHC 36.1 H (31.6-35.5) g/dL RDW 13.7 (11.5-14.5) % Plt Count 8 L* D (140-400) K/mcL MPV TNP Seg Neutrophils % 51.0 % Band Neutrophils % 8.0 H (0-4) % Lymphocytes % 28.0 % Monocytes % 13.0 % Neutrophils # 2.3 (1.6-8.9) K/mcL Lymphocytes # 1.1 (0.6-4.6) K/mcL Monocytes # 0.5 (0.0-1.3) K/mcL Platelet Estimate Marked Decrease L (Normal) Immature Plt Fraction 12.4 H (1.1-6.1) % PT 12.6 H (9.4-12.1) Seconds INR 1.2 APTT 32.4 (26.0-36.0) Seconds Sodium (136-145) mEq/L Potassium (3.5-5.1) mEq/L Chloride (98-107) mEq/L Carbon Dioxide (23-29) mEq/L BUN (8-23) mg/dL Creatinine (0.70-1.30) mg/dL Est GFR ( Amer) (> 60) Est GFR (Non-Af Amer) (> 60) BUN/Creatinine Ratio (6-26) Glucose (70-105) mg/dL Calculated Osmolality (280-300) Lactic Acid (0.5-2.2) mmol/L Calcium (8.6-10.3) mg/dL Phosphorus (2.7-4.5) mg/dL Magnesium (1.6-2.6) mg/dL Total Bilirubin (0.3-1.0) mg/dL Direct Bilirubin (0.0-0.2) mg/dL Indirect Bilirubin (0.0-1.2) mg/dL AST (13-39) Units/L ALT (7-52) Units/L Alkaline Phosphatase (34-104) Units/L Troponin I (< 0.04) ng/mL B-Natriuretic Peptide 173 H (Less than 100) pg/mL Serum Total Protein (6.4-8.9) g/dL Albumin (3.5-5.7) g/dL Globulin (2.4-3.5) g/dL Albumin/Globulin Ratio (1.1-2.2) Lipase (11-82) Units/L Urine Color (Yellow) Urine Clarity (Clear) Urine pH (5.0-8.0) pH Units Ur Specific [place] (1.010-1.025) Urine Protein (Neg-Trace) mg/dL Urine Glucose (UA) (Normal) mg/dL Urine Ketones (Negative) mg/dL Urine Blood (Negative) Urine Nitrite (Negative) Urine Bilirubin (Negative) Urine Urobilinogen (Normal) mg/dL Ur Leukocyte Esterase (Negative) Urine Microscopic RBC (0-3) per hpf Urine Microscopic WBC (0-3) per hpf Ur Squamous Epith Cells (None-Few) per lpf Urine Bacteria (None-Few) per hpf Hyaline Casts (None-Few) per lpf Ur Culture Indicated? (NO) Blood Type Antibody Screen 09/22/17 09/22/17 09/22/17 Range/Units 11:35 11:35 11:35 WBC (4.3-11.1) K/mcL RBC (4.19-5.50) M/mcL Hgb (12.9-16.9) g/dL Hct (37.5-50.1) % MCV (83.0-100.0) fL MCH (28.0-33.3) pg MCHC (31.6-35.5) g/dL RDW (11.5-14.5) % Plt Count (140-400) K/mcL MPV Seg Neutrophils % % Band Neutrophils % (0-4) % Lymphocytes % % Monocytes % % Neutrophils # (1.6-8.9) K/mcL Lymphocytes # (0.6-4.6) K/mcL Monocytes # (0.0-1.3) K/mcL Platelet Estimate (Normal) Immature Plt Fraction (1.1-6.1) % PT (9.4-12.1) Seconds INR APTT (26.0-36.0) Seconds Sodium 136 (136-145) mEq/L Potassium 3.5 (3.5-5.1) mEq/L Chloride 102 (98-107) mEq/L Carbon Dioxide 16 L (23-29) mEq/L BUN 54 H (8-23) mg/dL Creatinine 2.85 H (0.70-1.30) mg/dL Est GFR ( Amer) 27 L (> 60) Est GFR (Non-Af Amer) 23 L (> 60) BUN/Creatinine Ratio 19 (6-26) Glucose 87 (70-105) mg/dL Calculated Osmolality 296 (280-300) Lactic Acid 4.8 H* (0.5-2.2) mmol/L Calcium 8.9 (8.6-10.3) mg/dL Phosphorus 3.8 (2.7-4.5) mg/dL Magnesium 1.8 (1.6-2.6) mg/dL Total Bilirubin 0.9 (0.3-1.0) mg/dL Direct Bilirubin 0.4 H (0.0-0.2) mg/dL Indirect Bilirubin 0.5 (0.0-1.2) mg/dL AST 48 H (13-39) Units/L ALT 18 (7-52) Units/L Alkaline Phosphatase 63 (34-104) Units/L Troponin I 0.03 (< 0.04) ng/mL B-Natriuretic Peptide (Less than 100) pg/mL Serum Total Protein 6.5 (6.4-8.9) g/dL Albumin 3.8 (3.5-5.7) g/dL Globulin 2.7 (2.4-3.5) g/dL Albumin/Globulin Ratio 1.4 (1.1-2.2) Lipase 7 L (11-82) Units/L Urine Color (Yellow) Urine Clarity (Clear) Urine pH (5.0-8.0) pH Units Ur Specific [place] (1.010-1.025) Urine Protein (Neg-Trace) mg/dL Urine Glucose (UA) (Normal) mg/dL Urine Ketones (Negative) mg/dL Urine Blood (Negative) Urine Nitrite (Negative) Urine Bilirubin (Negative) Urine Urobilinogen (Normal) mg/dL Ur Leukocyte Esterase (Negative) Urine Microscopic RBC (0-3) per hpf Urine Microscopic WBC (0-3) per hpf Ur Squamous Epith Cells (None-Few) per lpf Urine Bacteria (None-Few) per hpf Hyaline Casts (None-Few) per lpf Ur Culture Indicated? (NO) Blood Type Antibody Screen 09/22/17 09/22/17 Range/Units 11:35 11:58 WBC (4.3-11.1) K/mcL RBC (4.19-5.50) M/mcL Hgb (12.9-16.9) g/dL Hct (37.5-50.1) % MCV (83.0-100.0) fL MCH (28.0-33.3) pg MCHC (31.6-35.5) g/dL RDW (11.5-14.5) % Plt Count (140-400) K/mcL MPV Seg Neutrophils % % Band Neutrophils % (0-4) % Lymphocytes % % Monocytes % % Neutrophils # (1.6-8.9) K/mcL Lymphocytes # (0.6-4.6) K/mcL Monocytes # (0.0-1.3) K/mcL Platelet Estimate (Normal) Immature Plt Fraction (1.1-6.1) % PT (9.4-12.1) Seconds INR APTT (26.0-36.0) Seconds Sodium (136-145) mEq/L Potassium (3.5-5.1) mEq/L Chloride (98-107) mEq/L Carbon Dioxide (23-29) mEq/L BUN (8-23) mg/dL Creatinine (0.70-1.30) mg/dL Est GFR ( Amer) (> 60) Est GFR (Non-Af Amer) (> 60) BUN/Creatinine Ratio (6-26) Glucose (70-105) mg/dL Calculated Osmolality (280-300) Lactic Acid (0.5-2.2) mmol/L Calcium (8.6-10.3) mg/dL Phosphorus (2.7-4.5) mg/dL Magnesium (1.6-2.6) mg/dL Total Bilirubin (0.3-1.0) mg/dL Direct Bilirubin (0.0-0.2) mg/dL Indirect Bilirubin (0.0-1.2) mg/dL AST (13-39) Units/L ALT (7-52) Units/L Alkaline Phosphatase (34-104) Units/L Troponin I (< 0.04) ng/mL B-Natriuretic Peptide (Less than 100) pg/mL Serum Total Protein (6.4-8.9) g/dL Albumin (3.5-5.7) g/dL Globulin (2.4-3.5) g/dL Albumin/Globulin Ratio (1.1-2.2) Lipase (11-82) Units/L Urine Color Yellow (Yellow) Urine Clarity Cloudy A (Clear) Urine pH 6.0 (5.0-8.0) pH Units Ur Specific [place] 1.015 (1.010-1.025) Urine Protein 100 H (Neg-Trace) mg/dL Urine Glucose (UA) Normal (Normal) mg/dL Urine Ketones Negative (Negative) mg/dL Urine Blood Large H (Negative) Urine Nitrite Negative (Negative) Urine Bilirubin Small H (Negative) Urine Urobilinogen Normal (Normal) mg/dL Ur Leukocyte Esterase Negative (Negative) Urine Microscopic RBC 50-100 H (0-3) per hpf Urine Microscopic WBC 15-30 H (0-3) per hpf Ur Squamous Epith Cells Many H (None-Few) per lpf Urine Bacteria None Seen (None-Few) per hpf Hyaline Casts Moderate H (None-Few) per lpf Ur Culture Indicated? NO (NO) Blood Type A POSITIVE Antibody Screen NEGATIVE Critical Care Time Critical Care Time: Yes Total Critical Care Time: 60 Attestation: The high probability of a clinically significant, sudden or life threatening deterioration of the [] system(s) required my full and direct attention, intervention and personal management. The aggregate critical care time was [] minutes. This time is in addition to time spent performing reported procedures but includes the following: [] Data Review and interpretation [] Patient assessment and monitoring of vital signs [] Documentation [] Medication orders and management Attestation Statement - Attestation Attestation: I examined this patient and my medical decision-making was reviewed with the Resident Physician. I agree with the documented findings, disposition and treatment plan as described except to the extent set forth below. Face to face time provided with Dr. [place] Patient with h/o MDS. presents weak and hypotensive. frail appearing on exam. labs from yesterday reviewed by me 14:09: Patient is criteria for septic shock at 14:[address] findings showing nonspecific proctocolitis. Broad spectrum antibiotics initiated. Patient was hydrated. Sepsis reassessment note to be provided by Dr. Cuba.
--- NOTE | 2017-09-22 11:41 | Emergency Department Note ---
Disposition Clinical Impression: Pancytopenia, Lactic acidosis, Proctocolitis, Septic shock, Thrombocytopenia Disposition: Admitted As Inpatient Condition: Critical Referrals: Kev Lenz MD [Primary Care Provider] - Forms: ED Satisfaction Letter Time of Disposition: 15:32 SOB HPI - General Chief Complaint: ED Shortness of Breath/Dyspnea Stated Complaint: ROSALBA, cancer pt (MDS) Time Seen by Provider: 09/22/17 11:22 Source: patient Limitations: no limitations Nursing Notes Reviewed: Yes Vital Signs Reviewed: Yes - History of Present Illness 59-year-old male with history of mild dysplastic syndrome, is complaining of cough congestion, abdominal pain and diarrhea. He has also noted some blood in the stool. This been going on for the last 3 or 4 days, he states his last platelet count was about 20. He denies history of liver disease. He is reporting some weight loss of about 5-10 pounds, active chemotherapy with Dr. HYMAN through the oncology center. Patient denies chest pain, he does have some dysuria, patient denies hematuria or flank pain. Pt Subjective Complaint: shortness of breath Onset (ago): day(s) Context: recent illness Severity: moderate Improves with: nothing Worsens with: nothing Associated symptoms: Reports: fever, cough. Denies: chest pain, wheezing, sputum production, orthopnea, lower extremity pain, polyuria, polydipsia Treatment prior to arrival: none Cough present: Yes Cough Description: Involuntary Cough Frequency: Continuous Sputum Amount: Scant - Related Data Home Medications Medication Instructions Recorded Confirmed Buspirone HCl [Buspar] 10 mg PO BID 03/14/17 09/22/17 Ibuprofen [Advil] 400 mg PO Q6H PRN 03/14/17 09/22/17 Lovastatin [Lovastatin] 40 mg PO HS 03/14/17 09/22/17 Trazodone HCl 100 mg PO HS 03/14/17 09/22/17 Oxycodone HCl [Oxaydo] 10 mg PO Q6H PRN 08/16/17 09/22/17 Previous Rx's Medication Instructions Recorded Magic Mouthwash [Magic Mouthwash 10 ml PO QID PRN #240 ml 05/24/17 BLM] Nystatin [Nystatin Suspension] 500,000 units PO QID PRN #120 ml 05/24/17 Ondansetron [Zofran] 8 mg PO Q8HR PRN #90 tablet 05/24/17 Prochlorperazine Maleate 10 mg PO Q6HR PRN #90 tablet 05/24/17 [Compazine] Docusate [Colace] 100 mg PO BID #60 capsule 09/20/17 Polyethylene Glycol 3350 [MiraLAX] 17 gm PO DAILY #30 powd.pack 09/21/17 Allergies Allergy/AdvReac Type Severity Reaction Status Date / Time No Known Allergies Allergy Verified 09/11/17 13:08 All systems ED: reviewed and negative except as stated. Review of Systems: As Per HPI Constitutional: Reports: fever, weakness. Denies: chills Eyes: Denies: eye pain ENT ED: Denies: ear pain Cardiovascular: Denies: chest pain Respiratory: Reports: cough Gastrointestinal: Reports: abdominal pain, nausea, diarrhea, melena. Denies: vomiting Genitourinary: Denies: urgency, dysuria Musculoskeletal: Denies: back pain Integumentary: Denies: rash Neurological: Denies: headache, weakness Psychiatric: Denies: anxiety Endocrine: Denies: fatigue Past Medical History - Past Medical History Attestation: Yes The following information was validated with the patient. Source: patient Medical history: Reports: cancer, hypertension Surgical history: Reports: other Psychiatric history: Reports: anxiety - Social History Smoking Status: Former smoker Smokeless Tobacco Status: No Alcohol use: Reports: none Drug use: Reports: none Physical Exam Constitutional: Elderly cachectic male Eyes: PERRLA, sclera anicteric ENT & Mouth: MM dry Neck: normal inspection, neck is supple Resp: CTA bilaterally, no resp distress CV: RRR, no m/g/r GI: normal inspection, soft, mild ttp diffusely, no guarding or rigidity Neuro: A&O3, CNII-XII grossly intact, ESCALANTE Skin: Poor skin turgor, purpura and ecchymosis on extremities - General Limitations: no limitations General appearance: alert, in no apparent distress Course Course Narrative: 59-year-old male with mild dysplastic syndrome, appears cachectic, with conjunctival pallor, poor skin turgor, plans source. Septic workup given that he is tachycardic, hypotensive, with a blood pressure less than 80, also concern for possible GI bleed, hypovolemia, dehydration. Large-bore axis and fluid rehydration is started, patient will also be typed and screened. - Reevaluation(s) Reevaluation #1: Severe sepsis and septic shock recognized this time, given findings of procto- colitis on CT scan, patient's lactic acidosis hypotension, has been fluid responsive, second IV ordered, repeat lactate sepsis recognized 1409. Time: 14:09 Reevaluation #2: After multiple conversations and discussed with the hospitalist and insurance salesman , the insurance salesman came down to evaluate the patient, there was an ICU bed available, the patient started on empiric Zosyn and Flagyl antibiotics, 2 large- bore IVs, one pressures been responsive blood pressures at this time, ICU insurance salesman came down to evaluate the patient suggests to more packs of platelets, and PICC line placement, the PICC line team was counseled, the patient will be admitted to the insurance salesman on 2 N. Time: 15:29 Vital Signs Temperature 99.6 F 09/22/17 11:17 Pulse Rate 113 09/22/17 11:17 Respiratory Rate 22 09/22/17 11:17 Blood Pressure 81/52 09/22/17 11:17 O2 Sat by Pulse Oximetry 97 09/22/17 11:17 Temperature 97.6 F 09/22/17 15:30 Pulse Rate 88 09/22/17 15:30 Respiratory Rate 22 09/22/17 15:50 Blood Pressure 112/62 09/22/17 15:50 O2 Sat by Pulse Oximetry 98 09/22/17 15:50 Oxygen Delivery Oxygen Delivery Room Air Shortness of Breath/Dyspnea - Differential Diagnosis Likely: acute exacerbation of chronic obstructive airways disease, congestive heart failure, pneumonia - Medical Records Medical records reviewed: Yes I reviewed the patient's medical records. - Lab Data Lab results reviewed: Yes I reviewed the patient's lab results. Result diagrams: 09/22/17 11:35 09/22/17 11:35 Lab Results 09/22/17 09/22/17 09/22/17 Range/Units 11:35 11:35 11:35 WBC 3.9 L (4.3-11.1) K/mcL RBC 2.84 L (4.19-5.50) M/mcL Hgb 9.9 L D (12.9-16.9) g/dL Hct 27.4 L (37.5-50.1) % MCV 96.5 (83.0-100.0) fL MCH 34.9 H (28.0-33.3) pg MCHC 36.1 H (31.6-35.5) g/dL RDW 13.7 (11.5-14.5) % Plt Count 8 L* D (140-400) K/mcL MPV TNP Seg Neutrophils % 51.0 % Band Neutrophils % 8.0 H (0-4) % Lymphocytes % 28.0 % Monocytes % 13.0 % Neutrophils # 2.3 (1.6-8.9) K/mcL Lymphocytes # 1.1 (0.6-4.6) K/mcL Monocytes # 0.5 (0.0-1.3) K/mcL Platelet Estimate Marked Decrease L (Normal) Immature Plt Fraction 12.4 H (1.1-6.1) % PT 12.6 H (9.4-12.1) Seconds INR 1.2 APTT 32.4 (26.0-36.0) Seconds Sodium (136-145) mEq/L Potassium (3.5-5.1) mEq/L Chloride (98-107) mEq/L Carbon Dioxide (23-29) mEq/L BUN (8-23) mg/dL Creatinine (0.70-1.30) mg/dL Est GFR ( Amer) (> 60) Est GFR (Non-Af Amer) (> 60) BUN/Creatinine Ratio (6-26) Glucose (70-105) mg/dL Calculated Osmolality (280-300) Lactic Acid (0.5-2.2) mmol/L Calcium (8.6-10.3) mg/dL Phosphorus (2.7-4.5) mg/dL Magnesium (1.6-2.6) mg/dL Total Bilirubin (0.3-1.0) mg/dL Direct Bilirubin (0.0-0.2) mg/dL Indirect Bilirubin (0.0-1.2) mg/dL AST (13-39) Units/L ALT (7-52) Units/L Alkaline Phosphatase (34-104) Units/L Troponin I (< 0.04) ng/mL B-Natriuretic Peptide 173 H (Less than 100) pg/mL Serum Total Protein (6.4-8.9) g/dL Albumin (3.5-5.7) g/dL Globulin (2.4-3.5) g/dL Albumin/Globulin Ratio (1.1-2.2) Lipase (11-82) Units/L Urine Color (Yellow) Urine Clarity (Clear) Urine pH (5.0-8.0) pH Units Ur Specific [place] (1.010-1.025) Urine Protein (Neg-Trace) mg/dL Urine Glucose (UA) (Normal) mg/dL Urine Ketones (Negative) mg/dL Urine Blood (Negative) Urine Nitrite (Negative) Urine Bilirubin (Negative) Urine Urobilinogen (Normal) mg/dL Ur Leukocyte Esterase (Negative) Urine Microscopic RBC (0-3) per hpf Urine Microscopic WBC (0-3) per hpf Ur Squamous Epith Cells (None-Few) per lpf Urine Bacteria (None-Few) per hpf Hyaline Casts (None-Few) per lpf Ur Culture Indicated? (NO) Blood Type Antibody Screen 09/22/17 09/22/17 09/22/17 Range/Units 11:35 11:35 11:35 WBC (4.3-11.1) K/mcL RBC (4.19-5.50) M/mcL Hgb (12.9-16.9) g/dL Hct (37.5-50.1) % MCV (83.0-100.0) fL MCH (28.0-33.3) pg MCHC (31.6-35.5) g/dL RDW (11.5-14.5) % Plt Count (140-400) K/mcL MPV Seg Neutrophils % % Band Neutrophils % (0-4) % Lymphocytes % % Monocytes % % Neutrophils # (1.6-8.9) K/mcL Lymphocytes # (0.6-4.6) K/mcL Monocytes # (0.0-1.3) K/mcL Platelet Estimate (Normal) Immature Plt Fraction (1.1-6.1) % PT (9.4-12.1) Seconds INR APTT (26.0-36.0) Seconds Sodium 136 (136-145) mEq/L Potassium 3.5 (3.5-5.1) mEq/L Chloride 102 (98-107) mEq/L Carbon Dioxide 16 L (23-29) mEq/L BUN 54 H (8-23) mg/dL Creatinine 2.85 H (0.70-1.30) mg/dL Est GFR ( Amer) 27 L (> 60) Est GFR (Non-Af Amer) 23 L (> 60) BUN/Creatinine Ratio 19 (6-26) Glucose 87 (70-105) mg/dL Calculated Osmolality 296 (280-300) Lactic Acid 4.8 H* (0.5-2.2) mmol/L Calcium 8.9 (8.6-10.3) mg/dL Phosphorus 3.8 (2.7-4.5) mg/dL Magnesium 1.8 (1.6-2.6) mg/dL Total Bilirubin 0.9 (0.3-1.0) mg/dL Direct Bilirubin 0.4 H (0.0-0.2) mg/dL Indirect Bilirubin 0.5 (0.0-1.2) mg/dL AST 48 H (13-39) Units/L ALT 18 (7-52) Units/L Alkaline Phosphatase 63 (34-104) Units/L Troponin I 0.03 (< 0.04) ng/mL B-Natriuretic Peptide (Less than 100) pg/mL Serum Total Protein 6.5 (6.4-8.9) g/dL Albumin 3.8 (3.5-5.7) g/dL Globulin 2.7 (2.4-3.5) g/dL Albumin/Globulin Ratio 1.4 (1.1-2.2) Lipase 7 L (11-82) Units/L Urine Color (Yellow) Urine Clarity (Clear) Urine pH (5.0-8.0) pH Units Ur Specific [place] (1.010-1.025) Urine Protein (Neg-Trace) mg/dL Urine Glucose (UA) (Normal) mg/dL Urine Ketones (Negative) mg/dL Urine Blood (Negative) Urine Nitrite (Negative) Urine Bilirubin (Negative) Urine Urobilinogen (Normal) mg/dL Ur Leukocyte Esterase (Negative) Urine Microscopic RBC (0-3) per hpf Urine Microscopic WBC (0-3) per hpf Ur Squamous Epith Cells (None-Few) per lpf Urine Bacteria (None-Few) per hpf Hyaline Casts (None-Few) per lpf Ur Culture Indicated? (NO) Blood Type Antibody Screen 09/22/17 09/22/17 09/22/17 Range/Units 11:35 11:58 15:26 WBC (4.3-11.1) K/mcL RBC (4.19-5.50) M/mcL Hgb (12.9-16.9) g/dL Hct (37.5-50.1) % MCV (83.0-100.0) fL MCH (28.0-33.3) pg MCHC (31.6-35.5) g/dL RDW (11.5-14.5) % Plt Count (140-400) K/mcL MPV Seg Neutrophils % % Band Neutrophils % (0-4) % Lymphocytes % % Monocytes % % Neutrophils # (1.6-8.9) K/mcL Lymphocytes # (0.6-4.6) K/mcL Monocytes # (0.0-1.3) K/mcL Platelet Estimate (Normal) Immature Plt Fraction (1.1-6.1) % PT (9.4-12.1) Seconds INR APTT (26.0-36.0) Seconds Sodium (136-145) mEq/L Potassium (3.5-5.1) mEq/L Chloride (98-107) mEq/L Carbon Dioxide (23-29) mEq/L BUN (8-23) mg/dL Creatinine (0.70-1.30) mg/dL Est GFR ( Amer) (> 60) Est GFR (Non-Af Amer) (> 60) BUN/Creatinine Ratio (6-26) Glucose (70-105) mg/dL Calculated Osmolality (280-300) Lactic Acid 3.5 H (0.5-2.2) mmol/L Calcium (8.6-10.3) mg/dL Phosphorus (2.7-4.5) mg/dL Magnesium (1.6-2.6) mg/dL Total Bilirubin (0.3-1.0) mg/dL Direct Bilirubin (0.0-0.2) mg/dL Indirect Bilirubin (0.0-1.2) mg/dL AST (13-39) Units/L ALT (7-52) Units/L Alkaline Phosphatase (34-104) Units/L Troponin I (< 0.04) ng/mL B-Natriuretic Peptide (Less than 100) pg/mL Serum Total Protein (6.4-8.9) g/dL Albumin (3.5-5.7) g/dL Globulin (2.4-3.5) g/dL Albumin/Globulin Ratio (1.1-2.2) Lipase (11-82) Units/L Urine Color Yellow (Yellow) Urine Clarity Cloudy A (Clear) Urine pH 6.0 (5.0-8.0) pH Units Ur Specific [place] 1.015 (1.010-1.025) Urine Protein 100 H (Neg-Trace) mg/dL Urine Glucose (UA) Normal (Normal) mg/dL Urine Ketones Negative (Negative) mg/dL Urine Blood Large H (Negative) Urine Nitrite Negative (Negative) Urine Bilirubin Small H (Negative) Urine Urobilinogen Normal (Normal) mg/dL Ur Leukocyte Esterase Negative (Negative) Urine Microscopic RBC 50-100 H (0-3) per hpf Urine Microscopic WBC 15-30 H (0-3) per hpf Ur Squamous Epith Cells Many H (None-Few) per lpf Urine Bacteria None Seen (None-Few) per hpf Hyaline Casts Moderate H (None-Few) per lpf Ur Culture Indicated? NO (NO) Blood Type A POSITIVE Antibody Screen NEGATIVE - Radiology Data Radiology results reviewed: Yes I reviewed the patient's radiology results. Chest X-Ray 09/22/17 11:24 IMPRESSION: No evidence of acute cardiopulmonary disease. D/ / Tyler Monroy MD / Tyler Monroy MD Interpreting Provider: Tyler Monroy MD Chest X-Ray 09/22/17 11:24 IMPRESSION: No evidence of acute cardiopulmonary disease. D/ / Tlyer Monroy MD / Tyler Monroy MD Interpreting Provider: Tyler Monroy MD Abdomen/Pelvis CT 09/22/17 12:35 IMPRESSION: Circumferential low-attenuation wall thickening involving distal sigmoid colon and rectum with adjacent fat stranding concerning for nonspecific infectious or inflammatory proctocolitis. No evidence for obstruction. Small volume dependent extraperitoneal free fluid in the pelvis may be reactive relating to the proctocolitis noted above. Gomez catheter within the urinary bladder. Small amount of gas within the urinary bladder may relate to Gomez catheter insertion/manipulation. There is also mild diffuse circumferential wall thickening to the urinary bladder. This could relate to underdistention. However, clinical and laboratory correlation suggested to exclude infectious etiology for these findings. Cholelithiasis. D/ / 09/22/2017 13:55:02 Thomas Kaur MD / jordan Interpreting Provider: Thomas Kaur MD - EKG Data EKG attestation: Yes I reviewed and interpreted this EKG. Rate: Reports: tachycardia (100 bpm TN 114 QRS 74 QTC 395 no acute ischemic changes,) [place]/QRS: Reports: normal Sepsis Reassessment Note - Evaluation Sepsis Screen: Sepsis Risk Current Stage of Sepsis: septic shock Possible Source of Sepsis: GI tract/intra-abdominal - Focused Exam Date of Encounter: 09/22/17 Time of Encounter: 14:10 Vital Signs: Vital Signs Temp Pulse Resp BP Pulse Ox 09/22/17 15:50 22 112/62 98 09/22/17 15:30 97.6 F 88 22 112/62 09/22/17 14:54 88 20 105/56 99 09/22/17 13:51 88 20 109/51 99 09/22/17 12:25 89 20 98/54 100 09/22/17 11:46 101 24 99/62 96 09/22/17 11:36 97 09/22/17 11:17 99.6 F 113 22 81/52 97 Respiratory Exam: Present: CTA bilaterally Cardiovascular Exam: Present: RRR Capillary Refill: < 2 seconds Peripheral Pulse Strength: 3+ normal Peripheral Pulse Location: Pedal Skin Exam: pale - Reassessment Comments Comments: purpura
[2017-09-22] MEDS: 0.9 % Sodium Chloride 1,000 ML IVC SCH ×2 (11:45→12:28)
[2017-09-22 11:56] LABS: Red Cell Distribution Width 13.7 % (11.5-14.5)
[2017-09-22 11:58] LABS: Mean Corpuscular Volume 96.5 fL (83.0-100.0)
[2017-09-22 12:00] LABS: INR 1.2; Prothrombin Time 12.6 Seconds (9.4-12.1)
[2017-09-22 12:02] LABS: Activated Partial Thrombo Time 32.4 Seconds (26.0-36.0)
[2017-09-22 12:06] LABS: Bilirubin,Urine Small (Negative); Blood,Urine Large (Negative); Clarity,Urine Cloudy (Clear); Color,Urine Yellow (Yellow); Glucose,Urine (UA) Normal (Normal); Ketones,Urine Negative (Negative); Leukocyte Esterase,Urine Negative (Negative); Nitrite,Urine Negative (Negative); Protein,Urine 100 mg/dL (Neg-Trace); Specific Gravity,Urine 1.015 (1.010-1.025); Urobilinogen,Urine Normal (Normal)
[2017-09-22 12:07] LABS: Hematocrit 27.4 % (37.5-50.1); Hemoglobin 9.9 g/dL (12.9-16.9); Immature Platelets 12.4 % (1.1-6.1); Mean Corpuscular HGB Conc 36.1 g/dL (31.6-35.5); Mean Corpuscular Hemoglobin 34.9 pg (28.0-33.3); Monocytes # 0.5 K/mcL (0.0-1.3); Red Blood Count 2.84 M/mcL (4.19-5.50)
[2017-09-22 12:08] LABS: Bacteria,Urine None Seen per hpf (None-Few); Squamous Epithelial Cell,Urine Many per lpf (None-Few); WBC,Urine 15-30 per hpf (0-3)
[2017-09-22 12:17] LABS: RBC,Urine 50-100 per hpf (0-3)
[2017-09-22 12:18] LABS: Hyaline Casts,Urine Moderate per lpf (None-Few)
[2017-09-22 12:18] LABS: Albumin 3.8 g/dL (3.5-5.7); Albumin/Globulin Ratio 1.4 (1.1-2.2); Bilirubin,Direct 0.4 mg/dL (0.0-0.2); Bilirubin,Indirect 0.5 mg/dL (0.0-1.2); Bilirubin,Total 0.9 mg/dL (0.3-1.0); Calcium 8.9 mg/dL (8.6-10.3); Globulin 2.7 g/dL (2.4-3.5); Magnesium 1.8 mg/dL (1.6-2.6); Phosphorous 3.8 mg/dL (2.7-4.5); Potassium 3.5 mEq/L (3.5-5.1); Total Protein 6.5 g/dL (6.4-8.9)
[2017-09-22] MEDS ORDERED: 0.9 % Sodium Chloride 1,000 ML IVC ONE ×3 (12:22→19:28)
[2017-09-22 12:30] LABS: Platelet Count 8 K/mcL (140-400)
[2017-09-22 12:38] LABS: Lymphocytes # 1.1 K/mcL (0.6-4.6); Neutrophils # 2.3 K/mcL (1.6-8.9)
[2017-09-22 12:39] LABS: Platelet Estimate Marked Decrease (Normal)
[2017-09-22] MEDS ORDERED: Piperacillin/Tazobactam 3.375 GM in D5% in Water (Mini-Bag+) 100 ML IVPB ONE (13:36)
[2017-09-22] MEDS ORDERED: Piperacillin/Tazobactam 3.375 GM in Water for inj. (sterile) 20 ML IVP ONE (14:06)
[2017-09-22] MEDS ORDERED: 0.9 % Sodium Chloride 250 ML ONE ×2 (15:16→16:25)
[2017-09-22] MEDS ORDERED: MetroNIDAZOLE 500 MG/100 ML 500 MG/100 ML BAG IVPB ONE (15:29)
[2017-09-22 16:31] LABS: Mean Corpuscular Volume 96.2 fL (83.0-100.0)
[2017-09-22 16:33] LABS: Hematocrit 22.8 % (37.5-50.1); Hemoglobin 8.1 g/dL (12.9-16.9); Immature Platelets 2.4 % (1.1-6.1); Mean Corpuscular HGB Conc 35.5 g/dL (31.6-35.5); Mean Corpuscular Hemoglobin 34.2 pg (28.0-33.3); Mean Platelet Volume 11.2 fL (9.4-12.4); Red Blood Count 2.37 M/mcL (4.19-5.50); Red Cell Distribution Width 13.7 % (11.5-14.5)
[2017-09-22 17:04] LABS: Platelet Count 28 K/mcL (140-400)
[2017-09-22 17:15] LABS: Lymphocytes # 2.3 K/mcL (0.6-4.6); Monocytes # 0.8 K/mcL (0.0-1.3); Platelet Estimate Marked Decrease (Normal)
[2017-09-22 18:15] LABS: Mean Corpuscular Volume 96.7 fL (83.0-100.0); Red Cell Distribution Width 13.8 % (11.5-14.5)
[2017-09-22 18:17] LABS: Basophils # 0.1 K/mcL (0.0-0.2); Basophils % 2.2 %; Hematocrit 20.5 % (37.5-50.1); Hemoglobin 7.3 g/dL (12.9-16.9); Immature Granulocytes % 26.1 % (0-4); Immature Platelets 1.4 % (1.1-6.1); Lymphocytes # 0.6 K/mcL (0.6-4.6); Lymphocytes % 19.1 %; Mean Corpuscular HGB Conc 35.6 g/dL (31.6-35.5); Mean Corpuscular Hemoglobin 34.4 pg (28.0-33.3); Mean Platelet Volume 9.7 fL (9.4-12.4); Monocytes # 0.4 K/mcL (0.0-1.3); Monocytes % 13.4 %; Neutrophils # 1.2 K/mcL (1.6-8.9); Red Blood Count 2.12 M/mcL (4.19-5.50); Segmented Neutrophils % 39.2 %
[2017-09-22 18:18] LABS: Platelet Count 38 K/mcL (140-400)
[2017-09-22 18:32] LABS: Calcium 7.6 mg/dL (8.6-10.3); Potassium 3.6 mEq/L (3.5-5.1)
--- NOTE | 2017-09-22 18:48 | Pulmonology History & Physical ---
<India Bahena - Last Filed: 09/22/17 19:23> Date of Encounter: 09/22/17 Time of Encounter: 17:00 Assessment and Plan (1) Septic shock Current visit: Yes Status: Acute Septic shock secondary to proctocolitis Abd CT- demonstrated proctocolitis CXR no evidence of acute cardiopulmonary process lactic acid 3.5 (4.8 at admission) 3L IVF bolus given in ED flu negative Plan -Zosyn -Flagyl -blood cultures pending -IVF bolus -recheck lactic acid -monitor H&H (2) Pancytopenia Current visit: Yes Status: Acute Myelodysplastic pancytopenia platelets 38 now (8 at admission) Hgb 7.3 1 bag platelets given in ED no obvious active bleeding plan -1 bag platelets ordered -monitor platelet count -oncology consulted (3) Myelodysplasia (myelodysplastic syndrome) Current visit: Yes Status: Acute Patient has a history of myelodysplastic syndrome where he sees Dr. Darden at the [facility] for chemotherapy (4) Proctocolitis Current visit: Yes Status: Acute Proctocolitis demonstrated by CT abdomen Plan start Zosyn start Flagyl (5) LEXY (acute kidney injury) Current visit: Yes Status: Acute LEXY secondary to sepsis creatinine 2.85 Plan monitor serum creatinine avoid nephrotoxic agents monitor I&O (6) External hemorrhoid, bleeding Current visit: No Status: Acute Patient is a history of external hemorrhoids (7) DVT prophylaxis Current visit: No Status: Acute EPCD History of Present Illness Chief complaint: sepsis HPI: Mr. Solis is a 61 year old male with a past medical history of mild dysplastic syndrome presented to [facility] complaining of cough, abdominal pain, diarrhea. This is been going on for the past 3-4 days. He reported having blood in his stool. He admitted to having a headache that he occasionally will have. He sees Dr. Darden at the [facility] for chemotherapy. He reports that his last platelet count was 20. Denies chest pain. While in the ED he received platelets, 4L IVF, IV access was obtained, Lactic acid 4.8. Past Med Surg Social Fam HX - Past Medical History Medical history: cancer, hypertension Psychiatric history: anxiety - Past Surgical History Surgical History: other - Social History Smoking Status: Former smoker Smokeless Tobacco Status: No Alcohol use: none Drug use: none - Family History Mother Living Status: Father Living Status: Hx Family Cancer: Yes (Prostate) Medications and Allergies Buspirone HCl [Buspar] 10 mg PO BID 03/14/17 [History] Ibuprofen [Advil] 400 mg PO Q6H PRN 03/14/17 [History] Lovastatin [Lovastatin] 40 mg PO HS 03/14/17 [History] Trazodone HCl 100 mg PO HS 03/14/17 [History] Magic Mouthwash [Magic Mouthwash BLM] 10 ml PO QID PRN #240 ml 05/24/17 [Rx] Nystatin [Nystatin Suspension] 500,000 units PO QID PRN #120 ml 05/24/17 [Rx] Ondansetron [Zofran] 8 mg PO Q8HR PRN #90 tablet 05/24/17 [Rx] Prochlorperazine Maleate [Compazine] 10 mg PO Q6HR PRN #90 tablet 05/24/17 [Rx] Oxycodone HCl [Oxaydo] 10 mg PO Q6H PRN 08/16/17 [History] Docusate [Colace] 100 mg PO BID #60 capsule 09/20/17 [Rx] Polyethylene Glycol 3350 [MiraLAX] 17 gm PO DAILY #30 powd.pack 09/21/17 [Rx] 3 Allergy/AdvReac Type Severity Reaction Status Date / Time No Known Allergies Allergy Verified 09/11/17 13:08 All Systems: The remainder of the systems were reviewed and are negative - Constitutional Constitutional: anorexia, headache(s), weakness, weight loss - Cardiovascular Cardiovascular: no chest pain, no diaphoresis, no edema - Respiratory Respiratory: cough, no hemoptysis, no wheezing - Gastrointestinal Gastrointestinal: abdominal pain, diarrhea, no hematochezia - Genitourinary Genitourinary: no hematuria - Neurological Neurological: headache(s), no frequent falls - Hematologic/Lymphatic Hematologic/Lymphatic: easy bleeding Physical Examination Vital Signs: Vital Signs, Last 4 Hours Temp Pulse Resp BP Pulse Ox 09/22/17 18:00 90 20 112/63 100 09/22/17 17:26 92 09/22/17 17:20 98.2 F 92 20 115/57 100 09/22/17 16:46 92 20 110/61 99 General appearance: no acute distress Eyes: nonicteric ENT: oropharynx moist Neck: supple Effort: normal Inspection: normal Auscultation: bilateral: clear Cardiovascular: regular rate and rhythm Gastrointestinal: normoactive bowel sounds, soft Integumentary: other (Petechiae mostly on the right upper extremity and some on bilateral lower extremities) Extremities: no cyanosis, no edema Musculoskeletal: no deformities normal mental status, non-focal exam mood appropriate, affect normal Results - Laboratory Findings CBC and BMP: 09/22/17 18:06 09/22/17 18:06 PT/INR, D-dimer PT 12.6 Seconds (9.4-12.1) H 09/22/17 11:35 Abnormal lab findings: Abnormal lab results WBC 3.1 K/mcL (4.3-11.1) L 09/22/17 18:06 RBC 2.12 M/mcL (4.19-5.50) L 09/22/17 18:06 Hgb 7.3 g/dL (12.9-16.9) L 09/22/17 18:06 Hct 20.5 % (37.5-50.1) L 09/22/17 18:06 MCH 34.4 pg (28.0-33.3) H 09/22/17 18:06 MCHC 35.6 g/dL (31.6-35.5) H 09/22/17 18:06 Plt Count 38 K/mcL (140-400) L 09/22/17 18:06 Blast Cells % 2.0 % (0) H 09/22/17 16:25 Neutrophils # 1.0 K/mcL (1.6-8.9) L 09/22/17 16:25 Nucleated RBCs/100 WBC 1.0 /100 WBC (0) H 09/22/17 16:25 Platelet Estimate Marked Decrease (Normal) L 09/22/17 16:25 PT 12.6 Seconds (9.4-12.1) H 09/22/17 11:35 Chloride 109 mEq/L (98-107) H 09/22/17 18:06 Carbon Dioxide 18 mEq/L (23-29) L 09/22/17 18:06 BUN 55 mg/dL (8-23) H 09/22/17 18:06 Creatinine 2.35 mg/dL (0.70-1.30) H 09/22/17 18:06 Est GFR ( Amer) 34 (> 60) L 09/22/17 18:06 Est GFR (Non-Af Amer) 28 (> 60) L 09/22/17 18:06 POC Glucose 92 (58-89) H 09/22/17 17:23 Calculated Osmolality 301 (280-300) H 09/22/17 18:06 Lactic Acid 3.5 mmol/L (0.5-2.2) H 09/22/17 18:06 Calcium 7.6 mg/dL (8.6-10.3) L 09/22/17 18:06 Direct Bilirubin 0.4 mg/dL (0.0-0.2) H 09/22/17 11:35 AST 48 Units/L (13-39) H 09/22/17 11:35 B-Natriuretic Peptide 173 pg/mL (Less than 100) H 09/22/17 11:35 Lipase 7 Units/L (11-82) L 09/22/17 11:35 Urine Clarity Cloudy (Clear) A 09/22/17 11:58 Urine Protein 100 mg/dL (Neg-Trace) H 09/22/17 11:58 Urine Blood Large (Negative) H 09/22/17 11:58 Urine Bilirubin Small (Negative) H 09/22/17 11:58 Urine Microscopic RBC 50-100 per hpf (0-3) H 09/22/17 11:58 Urine Microscopic WBC 15-30 per hpf (0-3) H 09/22/17 11:58 Ur Squamous Epith Cells Many per lpf (None-Few) H 09/22/17 11:58 Hyaline Casts Moderate per lpf (None-Few) H 09/22/17 11:58 <Claire Guardado S - Last Filed: 09/22/17 23:18> Date of Encounter: 09/22/17 History of Present Illness HPI: Mr. Solis is a 61 year old male All Systems: The remainder of the systems were reviewed and are negative Physical Examination Vital Signs: Vital Signs, Last 4 Hours Temp Pulse Resp BP Pulse Ox 09/22/17 21:58 87 18 105/55 98 09/22/17 21:00 88 18 103/54 99 09/22/17 20:00 92 18 116/56 98 09/22/17 19:30 98.2 F 93 26 141/67 99 Results - Laboratory Findings CBC and BMP: 09/22/17 18:06 09/22/17 18:06 PT/INR, D-dimer PT 12.6 Seconds (9.4-12.1) H 09/22/17 11:35 Abnormal lab findings: Abnormal lab results WBC 3.1 K/mcL (4.3-11.1) L 09/22/17 18:06 RBC 2.12 M/mcL (4.19-5.50) L 09/22/17 18:06 Hgb 7.3 g/dL (12.9-16.9) L 09/22/17 18:06 Hct 20.5 % (37.5-50.1) L 09/22/17 18:06 MCH 34.4 pg (28.0-33.3) H 09/22/17 18:06 MCHC 35.6 g/dL (31.6-35.5) H 09/22/17 18:06 Plt Count 38 K/mcL (140-400) L 09/22/17 18:06 Immature Gran % 26.1 % (0-4) H 09/22/17 18:06 Blast Cells % 2.0 % (0) H 09/22/17 16:25 Neutrophils # 1.2 K/mcL (1.6-8.9) L 09/22/17 18:06 Nucleated RBCs/100 WBC 1.0 /100 WBC (0) H 09/22/17 16:25 Platelet Estimate Marked Decrease (Normal) L 09/22/17 18:06 Hypochromasia Present (Not Present) A 09/22/17 18:06 Microcytosis Present (Not Present) A 09/22/17 18:06 PT 12.6 Seconds (9.4-12.1) H 09/22/17 11:35 Chloride 109 mEq/L (98-107) H 09/22/17 18:06 Carbon Dioxide 18 mEq/L (23-29) L 09/22/17 18:06 BUN 55 mg/dL (8-23) H 09/22/17 18:06 Creatinine 2.35 mg/dL (0.70-1.30) H 09/22/17 18:06 Est GFR ( Amer) 34 (> 60) L 09/22/17 18:06 Est GFR (Non-Af Amer) 28 (> 60) L 09/22/17 18:06 POC Glucose 92 (58-89) H 09/22/17 17:23 Calculated Osmolality 301 (280-300) H 09/22/17 18:06 Lactic Acid 3.5 mmol/L (0.5-2.2) H 09/22/17 18:06 Calcium 7.6 mg/dL (8.6-10.3) L 09/22/17 18:06 Direct Bilirubin 0.4 mg/dL (0.0-0.2) H 09/22/17 11:35 AST 48 Units/L (13-39) H 09/22/17 11:35 B-Natriuretic Peptide 173 pg/mL (Less than 100) H 09/22/17 11:35 Lipase 7 Units/L (11-82) L 09/22/17 11:35 Urine Clarity Cloudy (Clear) A 09/22/17 11:58 Urine Protein 100 mg/dL (Neg-Trace) H 09/22/17 11:58 Urine Blood Large (Negative) H 09/22/17 11:58 Urine Bilirubin Small (Negative) H 09/22/17 11:58 Urine Microscopic RBC 50-100 per hpf (0-3) H 09/22/17 11:58 Urine Microscopic WBC 15-30 per hpf (0-3) H 09/22/17 11:58 Ur Squamous Epith Cells Many per lpf (None-Few) H 09/22/17 11:58 Hyaline Casts Moderate per lpf (None-Few) H 09/22/17 11:58 - Attending Attestation I saw and evaluated this patient and my medical decision-making was reviewed with the Resident Physician. I agree with the documented findings, disposition and treatment plan as described except to the extent set forth below. We independently had [id number] contact with the patient Patient seen and examined at bedside Labs, radiology, chart personally reviewed. 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 To keep platelets above [id number] Endo: Glucose Monitored Integ/MSK: Skin Care per routine ICU Nursing Protocol to prevent ulcers. Lines: All lines examined without evidence of infection : Dispo: Remains critically ill because of high risk of bleeding with background of Thrombocytopenia CODE: Full Code
[2017-09-22 19:18] LABS: Hypochromasia Present (Not Present); Microcytosis Present (Not Present); Platelet Estimate Marked Decrease (Normal)
[2017-09-22] MEDS ORDERED: Ondansetron 4 MG/2 ML VIAL IVP PRN (19:32)
[2017-09-22] MEDS: *HR* OxyCODONE/APAP 10/325 TABLET PO PRN (19:35)
[2017-09-22] MEDS ORDERED: Magic Mouthwash 10 ML UD Cup PO PRN (19:47)
[2017-09-22] MEDS ORDERED: 0.9 % Sodium Chloride 1,000 ML IVC SCH (20:00)
[2017-09-22] MEDS ORDERED: traZODone 50 MG TABLET PO SCH (21:00)
[2017-09-23] MEDS ORDERED: Piperacillin/Tazobactam 3.375 GM in 0.9 % Sodium Chloride Mini Bag 100 ML IVPB SCH
[2017-09-23] MEDS ORDERED: MetroNIDAZOLE 500 MG/100 ML 500 MG/100 ML BAG IVPB SCH
--- NOTE | 2017-09-23 02:18 | Pulmonology Progress Note ---
<Eduar Murray - Last Filed: 09/23/17 02:14> Date of Encounter: 09/23/17 Time of Encounter: 02:14 Assessment and Plan (1) Septic shock Current Visit: Yes Status: Acute Septic shock secondary to proctocolitis as demonstrated on abdominal CT CXR no evidence of acute cardiopulmonary process lactic acid down at 3.5 from 4.8 3L IVF bolus given in ED, BP and HR have become relatively stable Plan -Zosyn -Flagyl -blood cultures pending -IVF bolus -recheck lactic acid -monitor CBC (2) Pancytopenia Current Visit: Yes Status: Acute Myelodysplastic pancytopenia platelets 38 now. One more unit ordered, however told by [facility] that 8am is the soonest it can be given because there is no stock Hgb 7.3, likely secondary to acute bleeding as well as hemodilution. One unit PRBC transfused no obvious active bleeding, patient not aware of active bleeding plan -1 bag platelets ordered -monitor platelet count, goal >50K -oncology consulted (3) Myelodysplasia (myelodysplastic syndrome) Current Visit: Yes Status: Acute Patient has a history of myelodysplastic syndrome where he [facility]. Anne [facility] (4) Proctocolitis Current Visit: Yes Status: Acute Proctocolitis demonstrated by CT abdomen Patient does complain of watery diarrhea but denies blood or melena for past day Pain remains under appropriate control Plan start Zosyn start Flagyl (5) LEXY (acute kidney injury) Current Visit: Yes Status: Acute LEXY secondary to sepsis creatinine 2.35, eGFR 28 Plan monitor renal labs, aggressive fluid replacement in light of sepsis avoid nephrotoxic agents monitor I&O (6) DVT prophylaxis Current Visit: No Status: Acute SCDs Subjective Principal diagnosis: Septic shock Interval history: The patient is resting comfortably at the time of exam. He does not appear to be in any distress, and does not wake up to basic exam. He does awaken to verbal stimuli. He is not complaining of anything acutely. He does have mild wheezes and coarse lung sounds. Objective PUL Vital signs: Last Vital Signs Temp 98.1 F 09/23/17 01:57 Pulse 80 09/23/17 01:57 Resp 16 09/23/17 01:57 BP 104/58 09/23/17 01:57 Pulse Ox 100 09/23/17 01:57 General appearance: no acute distress Eyes: nonicteric ENT: oropharynx moist Mallampati (class): 2 Neck: supple Effort: normal Auscultation: bilateral: diminished breath sounds, wheezes (b/l, L>R) Cardiovascular: regular rate and rhythm Gastrointestinal: normoactive bowel sounds, non-tender, non-distended Integumentary: normal Extremities: no cyanosis, no edema, no clubbing Musculoskeletal: no deformities, ROM normal normal mental status, non-focal exam mood appropriate, affect normal Results - Laboratory Findings CBC and BMP: 09/22/17 18:06 09/22/17 18:06 PT/INR, D-dimer PT 12.6 Seconds (9.4-12.1) H 09/22/17 11:35 Abnormal lab findings: Abnormal lab results WBC 3.1 K/mcL (4.3-11.1) L 09/22/17 18:06 RBC 2.12 M/mcL (4.19-5.50) L 09/22/17 18:06 Hgb 7.3 g/dL (12.9-16.9) L 09/22/17 18:06 Hct 20.5 % (37.5-50.1) L 09/22/17 18:06 MCH 34.4 pg (28.0-33.3) H 09/22/17 18:06 MCHC 35.6 g/dL (31.6-35.5) H 09/22/17 18:06 Plt Count 38 K/mcL (140-400) L 09/22/17 18:06 Immature Gran % 26.1 % (0-4) H 09/22/17 18:06 Blast Cells % 2.0 % (0) H 09/22/17 16:25 Neutrophils # 1.2 K/mcL (1.6-8.9) L 09/22/17 18:06 Nucleated RBCs/100 WBC 1.0 /100 WBC (0) H 09/22/17 16:25 Platelet Estimate Marked Decrease (Normal) L 09/22/17 18:06 Hypochromasia Present (Not Present) A 09/22/17 18:06 Microcytosis Present (Not Present) A 09/22/17 18:06 PT 12.6 Seconds (9.4-12.1) H 09/22/17 11:35 Chloride 109 mEq/L (98-107) H 09/22/17 18:06 Carbon Dioxide 18 mEq/L (23-29) L 09/22/17 18:06 BUN 55 mg/dL (8-23) H 09/22/17 18:06 Creatinine 2.35 mg/dL (0.70-1.30) H 09/22/17 18:06 Est GFR ( Amer) 34 (> 60) L 09/22/17 18:06 Est GFR (Non-Af Amer) 28 (> 60) L 09/22/17 18:06 POC Glucose 92 (58-89) H 09/22/17 17:23 Calculated Osmolality 301 (280-300) H 09/22/17 18:06 Lactic Acid 3.5 mmol/L (0.5-2.2) H 09/22/17 18:06 Calcium 7.6 mg/dL (8.6-10.3) L 09/22/17 18:06 Direct Bilirubin 0.4 mg/dL (0.0-0.2) H 09/22/17 11:35 AST 48 Units/L (13-39) H 09/22/17 11:35 B-Natriuretic Peptide 173 pg/mL (Less than 100) H 09/22/17 11:35 Lipase 7 Units/L (11-82) L 09/22/17 11:35 Urine Clarity Cloudy (Clear) A 09/22/17 11:58 Urine Protein 100 mg/dL (Neg-Trace) H 09/22/17 11:58 Urine Blood Large (Negative) H 09/22/17 11:58 Urine Bilirubin Small (Negative) H 09/22/17 11:58 Urine Microscopic RBC 50-100 per hpf (0-3) H 09/22/17 11:58 Urine Microscopic WBC 15-30 per hpf (0-3) H 09/22/17 11:58 Ur Squamous Epith Cells Many per lpf (None-Few) H 09/22/17 11:58 Hyaline Casts Moderate per lpf (None-Few) H 09/22/17 11:58 Gastric Occult Blood Positive (Negative) A 09/22/17 23:00 - Diagnostic Findings Chest x-ray: report reviewed - Clinical Findings Intake & Output: Intake & Output 09/22/17 09/22/17 09/23/17 15:59 23:59 07:59 Intake Total 1493 / 1493 412 / 412 Output Total 350 / 350 250 / 250 Balance 1143 / 1143 162 / 162 Weight 74.026 kg Consult Discharge Plan - Plan Referrals: Kev Lenz MD [Primary Care Provider] - <Claire Guardado S - Last Filed: 09/23/17 20:06> Date of Encounter: 09/23/17 Objective PUL Vital signs: Last Vital Signs Temp 99.1 F 09/23/17 19:41 Pulse 89 09/23/17 19:41 Resp 19 09/23/17 19:41 BP 151/80 09/23/17 19:41 Pulse Ox 99 09/23/17 19:41 Results - Laboratory Findings CBC and BMP: 09/23/17 18:51 09/23/17 03:37 ABG ABG pH 7.34 pH Units (7.32-7.45) 09/23/17 06:08 ABG pCO2 27 mmHg (35-45) L 09/23/17 06:08 ABG pO2 76 mmHg (85-104) L 09/23/17 06:08 ABG O2 Saturation 95 % (95-98) 09/23/17 06:08 PT/INR, D-dimer PT 12.6 Seconds (9.4-12.1) H 09/22/17 11:35 Abnormal lab findings: Abnormal lab results WBC 2.6 K/mcL (4.3-11.1) L 09/23/17 18:51 RBC 2.37 M/mcL (4.19-5.50) L 09/23/17 18:51 Hgb 8.0 g/dL (12.9-16.9) L 09/23/17 18:51 Hct 22.4 % (37.5-50.1) L 09/23/17 18:51 MCH 33.8 pg (28.0-33.3) H 09/23/17 18:51 MCHC 35.7 g/dL (31.6-35.5) H 09/23/17 18:51 RDW 16.0 % (11.5-14.5) H 09/23/17 18:51 Plt Count 44 K/mcL (140-400) L D 09/23/17 18:51 Immature Gran % 24.7 % (0-4) H 09/23/17 03:37 Blast Cells % 2.0 % (0) H 09/22/17 16:25 Neutrophils # 0.7 K/mcL (1.6-8.9) L 09/23/17 03:37 Nucleated RBCs/100 WBC 1.0 /100 WBC (0) H 09/22/17 16:25 Platelet Estimate Decreased (Normal) L 09/23/17 03:37 Hypochromasia Present (Not Present) A 09/22/17 18:06 Microcytosis Present (Not Present) A 09/22/17 18:06 PT 12.6 Seconds (9.4-12.1) H 09/22/17 11:35 ABG pCO2 27 mmHg (35-45) L 09/23/17 06:08 ABG pO2 76 mmHg (85-104) L 09/23/17 06:08 ABG HCO3 15 mEq/L (21-27) L 09/23/17 06:08 ABG Total CO2 15 mEq/L (20-26) L 09/23/17 06:08 ABG Base Excess -10 mEq/L (-2 to 3) L 09/23/17 06:08 Potassium 3.0 mEq/L (3.5-5.1) L 09/23/17 03:37 Chloride 114 mEq/L (98-107) H 09/23/17 03:37 Carbon Dioxide 15 mEq/L (23-29) L 09/23/17 03:37 BUN 52 mg/dL (8-23) H 09/23/17 03:37 Creatinine 1.75 mg/dL (0.70-1.30) H 09/23/17 03:37 Est GFR ( Amer) 48 (> 60) L 09/23/17 03:37 Est GFR (Non-Af Amer) 40 (> 60) L 09/23/17 03:37 BUN/Creatinine Ratio 30 (6-26) H 09/23/17 03:37 POC Glucose 92 (58-89) H 09/22/17 17:23 Calculated Osmolality 305 (280-300) H 09/23/17 03:37 Lactic Acid 3.6 mmol/L (0.5-2.2) H 09/23/17 18:51 Calcium 7.3 mg/dL (8.6-10.3) L 09/23/17 03:37 Direct Bilirubin 0.4 mg/dL (0.0-0.2) H 09/22/17 11:35 AST 48 Units/L (13-39) H 09/22/17 11:35 B-Natriuretic Peptide 173 pg/mL (Less than 100) H 09/22/17 11:35 Lipase 7 Units/L (11-82) L 09/22/17 11:35 Urine Clarity Cloudy (Clear) A 09/22/17 11:58 Urine Protein 100 mg/dL (Neg-Trace) H 09/22/17 11:58 Urine Blood Large (Negative) H 09/22/17 11:58 Urine Bilirubin Small (Negative) H 09/22/17 11:58 Urine Microscopic RBC 50-100 per hpf (0-3) H 09/22/17 11:58 Urine Microscopic WBC 15-30 per hpf (0-3) H 09/22/17 11:58 Ur Squamous Epith Cells Many per lpf (None-Few) H 09/22/17 11:58 Hyaline Casts Moderate per lpf (None-Few) H 09/22/17 11:58 Gastric Occult Blood Positive (Negative) A 09/22/17 23:00 - Clinical Findings Intake & Output: Intake & Output 09/23/17 09/23/17 09/23/17 07:59 15:59 23:59 Intake Total 812 / 812 761 / 761 Output Total 250 / 250 300 / 300 Balance 562 / 562 461 / 461 - Attending Attestation - Attending Attestation I saw and evaluated this patient and my medical decision-making was reviewed with the Resident Physician. I agree with the documented findings, disposition and treatment plan as described except to the extent set forth below. We independently had [id number] contact with the patient Patient seen and examined at bedside Labs, radiology, chart personally reviewed. TOMBSTONE SETTER:Patient is conscious oriented times x 3 Pulm: Patient has acceptable oxygenation and ventilation no evidence of pneumonia or fluid overload Cards:Patient is hemodynamically stable FEN-GI: Blood loss anemia with low platelets [place] [id number] but would be difficult with MDS Renal: LEXY , UOP and Labs reviewed ID: Neutropenic colitis to continue broad spectrum antibiotics Heme/Onc: Labs reviewed with Pancytopenia and Thrombocytopenia . [place] [id number] because of some suspected GI bleed . Oncology following Endo: Glucose Monitored Integ/MSK: Skin Care per routine ICU Nursing Protocol to prevent ulcers. Lines: All lines examined without evidence of infection : Dispo: Transferred to step down CODE: Full Code
[2017-09-23] MEDS ORDERED: Ondansetron 4 MG/2 ML VIAL IVP PRN (03:00)
[2017-09-23 03:46] LABS: Hemoglobin 7.9 g/dL (12.9-16.9); Mean Corpuscular Hemoglobin 33.9 pg (28.0-33.3); Red Blood Count 2.33 M/mcL (4.19-5.50); Red Cell Distribution Width 14.9 % (11.5-14.5)
[2017-09-23 03:48] LABS: Basophils # 0.1 K/mcL (0.0-0.2); Basophils % 2.1 %; Hematocrit 22.2 % (37.5-50.1); Immature Granulocytes % 24.7 % (0-4); Immature Platelets 1.9 % (1.1-6.1); Lymphocytes # 0.7 K/mcL (0.6-4.6); Lymphocytes % 27.2 %; Mean Corpuscular HGB Conc 35.6 g/dL (31.6-35.5); Mean Corpuscular Volume 95.3 fL (83.0-100.0); Mean Platelet Volume 11.1 fL (9.4-12.4); Monocytes # 0.4 K/mcL (0.0-1.3); Neutrophils # 0.7 K/mcL (1.6-8.9)
[2017-09-23 04:03] LABS: Platelet Count 24 K/mcL (140-400)
[2017-09-23 04:06] LABS: Calcium 7.3 mg/dL (8.6-10.3)
[2017-09-23 04:46] LABS: Platelet Estimate Decreased (Normal)
[2017-09-23] MEDS ORDERED: Ringers Solution, Lactated 1,000 ML IVC ONE ×2 (05:42→13:22)
[2017-09-23] MEDS: *HR* OxyCODONE/APAP 10/325 TABLET PO PRN ×2 (05:51→20:49)
[2017-09-23] MEDS ORDERED: Potassium Chloride 40 MEQ, Lidocaine 1% 2 ML in D5% in Water 500 ML IVPB ONE (06:00)
[2017-09-23 06:11] LABS: ABG Base Excess -10 mEq/L (-2 to 3); ABG HCO3 15 mEq/L (21-27); ABG Oxygen Saturation 95 % (95-98); ABG PCO2 27 mmHg (35-45); ABG PH 7.34 pH Units (7.32-7.45); ABG PO2 76 mmHg (85-104); ABG TCO2 15 mEq/L (20-26)
[2017-09-23] MEDS ORDERED: 0.9 % Sodium Chloride 1,000 ML IVC SCH (06:58)
[2017-09-23] MEDS ORDERED: Magic Mouthwash 10 ML UD Cup PO PRN (06:58)
[2017-09-23] MEDS: Piperacillin/Tazobactam 3.375 GM in 0.9 % Sodium Chloride Mini Bag 100 ML IVPB SCH ×2 (07:58→16:45)
[2017-09-23] MEDS: MetroNIDAZOLE 500 MG/100 ML 500 MG/100 ML BAG IVPB SCH ×2 (07:58→16:44)
[2017-09-23] MEDS: Ondansetron 4 MG/2 ML VIAL IVP PRN ×3 (11:05→20:49)
[2017-09-23] MEDS ORDERED: 0.9 % Sodium Chloride 250 ML ONE (11:16)
--- NOTE | 2017-09-23 12:42 | Oncology Inp Consult Note ---
Date of Encounter: 09/23/17 Time of Encounter: 11:00 Assessment and Plan (1) Myelodysplasia (myelodysplastic syndrome) Status: Acute Assessment and plan: He is being actively concern for bone marrow transplant [facility]. He has appointment with the transplant team on the of this month. It would be ideal for him to make this appointment if possible. However, if this is not possible, I will make arrangements to move this appointment to a later date. There is no indication for active therapy at current. He received his last dose of decitabine earlier this month. Transfusion Prenger is as below. (2) Pancytopenia Status: Acute Assessment and plan: This gentleman has RE [id number]. His current care or partner, Dr. Vitale. His most recent treatment with decitabine was this past week. For transfusion thresholds , I recommend maintaining a platelet count greater than 20,000. If actively bleeding, >50,000. This may be difficult given his MDS. I would transfuse 2 units packed blood cells for hemoglobin less than 7. There is no need for G- CSF currently. (3) Proctocolitis Status: Acute Assessment and plan: Appreciate the assistance of the primary team. I agree with Zosyn and metronidazole for empiric coverage. Would treat conservatively for now. (4) LEXY (acute kidney injury) Status: Acute - Data of Consult Patient: known to practice within the last 3 years Consult date: 09/23/17 Requesting Physician: Niranjan Knox DO Primary Care Provider: Kev Lenz MD - Consult Narrative Reason for consult: Pancytopenia, patient known to you History of present illness: Mr. 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 Patient was initially diagnosed with pancytopenia in February 2017. The patient was transferred from [place] to [facility] where bone marrow biopsy revealed 6% blasts. 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 This was consistent with RAEB1. Nutrition, backgrounds CLL occupying 10-20% of the bone marrow was identified as well. He is placed on decitabine in March 2017 and has received platelet and packed red blood cell transfusions intermittently since initiation of therapy. He has established care with Dr. Mireya Schuler at [facility] for his MDS as well as Dr. Rosario for CLL. Bone marrow transplantation is currently being considered. He has completed 7 cycles of decitabine to date with cycle 7 day 5 09/15/17. For the past week or so, he has felt poorly. He had poor oral intake. He had no significant urinary output as well. He was very fatigued and tired. The day prior to admission, he developed acute on chronic diffuse abdominal pain and diarrhea. Patient reported having blood in the stool but this is chronic from hemorrhoids. In the emergency department, he was normotensive but his lactic acid was elevated at 4.8 and creatinine was elevated at 2.35. Patient received 4 L of normal saline a morfin catheter placed. Platelet count was also low at 8000 prompting transfusion of platelets. He is placed on broad-spectrum antibiotics. CT imaging is reviewed below revealed colitis/proctitis. This morning, he feels much better. He was afebrile at admission and remains afebrile through his hospital stay. Oral intake has improved a bit. Still with right lower quadrant pain which is chronic and has been present for "years ". Headache has resolved. He denies any bleeding symptoms currently of epistaxis, hemoptysis, hematemesis, melena or hematochezia. He did have petechiae yesterday which is resolved with transfusion of platelets. Platelet count this morning had decreased from 38,000-24,000 he is receiving another unit of platelets as we speak. Past Med Surg Social Fam HX - Past Medical History Medical history: cancer, hypertension Psychiatric history: anxiety - Past Surgical History Surgical History: other - Social History Smoking Status: Former smoker Smokeless Tobacco Status: No Alcohol use: none Drug use: none - Family History Mother Living Status: Father Living Status: Hx Family Cancer: Yes (Prostate) Medications and Allergies Buspirone HCl [Buspar] 10 mg PO BID 03/14/17 [History] Ibuprofen [Advil] 400 mg PO Q6H PRN 03/14/17 [History] Lovastatin [Lovastatin] 40 mg PO HS 03/14/17 [History] Trazodone HCl 100 mg PO HS 03/14/17 [History] Magic Mouthwash [Magic Mouthwash BLM] 10 ml PO QID PRN #240 ml 05/24/17 [Rx] Nystatin [Nystatin Suspension] 500,000 units PO QID PRN #120 ml 05/24/17 [Rx] Ondansetron [Zofran] 8 mg PO Q8HR PRN #90 tablet 05/24/17 [Rx] Prochlorperazine Maleate [Compazine] 10 mg PO Q6HR PRN #90 tablet 05/24/17 [Rx] Oxycodone HCl [Oxaydo] 10 mg PO Q6H PRN 08/16/17 [History] Docusate [Colace] 100 mg PO BID #60 capsule 09/20/17 [Rx] Polyethylene Glycol 3350 [MiraLAX] 17 gm PO DAILY #30 powd.pack 09/21/17 [Rx] 3 Allergy/AdvReac Type Severity Reaction Status Date / Time No Known Allergies Allergy Verified 09/11/17 13:08 All systems: reviewed and no additional remarkable complaints except as stated Constitutional: Present: daytime sleepiness, fatigue Eyes: Present: as per HPI Ears: Present: as per HPI Nose, mouth and throat: Present: as per HPI Cardiovascular: Present: as per HPI Respiratory: Present: as per HPI Gastrointestinal: Present: abdominal pain, diarrhea, fecal incontinence, tenesmus Genitourinary: difficulty urinating (prior to morfin) Musculoskeletal: Present: as per HPI Integumentary: Present: as per HPI Neurological: Present: as per HPI Psychiatric: Present: as per HPI Oncology - Exam - Constitutional Vitals: Temp Pulse Resp BP Pulse Ox 97.7 F 82 14 122/67 97 09/23/17 11:41 09/23/17 11:41 09/23/17 11:41 09/23/17 11:41 09/23/17 11:13 General appearance: average body habitus, cooperative, no acute distress - Head Head exam: Present: atraumatic, normal inspection, normocephalic - Eye Eye exam: Present: normal appearance, conjuntiva pink, sclera anicteric - ENT ENT exam: Present: mucous membranes moist, normal oropharynx - Neck Neck exam: Present: full ROM, normal inspection - Respiratory Respiratory exam: Present: CTAB - Cardiovascular Cardiovascular exam: Present: RRR - GI/Abdominal GI/Abdominal exam: Present: normal bowel sounds, soft, tenderness (RLQ) - Extremities Exam Extremities exam: Present: normal inspection - Neurological Exam Neurological exam: Present: alert, CN II-XII intact, oriented X3 Oncology - Results Labs: Short CBC 09/22/17 09/23/17 Range/Units 18:06 03:37 WBC 3.1 L 2.4 L (4.3-11.1) K/mcL Hgb 7.3 L 7.9 L (12.9-16.9) g/dL Hct 20.5 L 22.2 L (37.5-50.1) % Plt Count 38 L 24 L* (140-400) K/mcL Neutrophils # 1.2 L 0.7 L (1.6-8.9) K/mcL BMP 09/22/17 09/23/17 18:06 03:37 Sodium 138 141 Potassium 3.6 3.0 L Chloride 109 H 114 H Carbon Dioxide 18 L 15 L BUN 55 H 52 H Creatinine 2.35 H 1.75 H Glucose 96 80 Calcium 7.6 L 7.3 L Consult Discharge Plan - Plan Referrals: Kev Lenz MD [Primary Care Provider] -
--- NOTE | 2017-09-23 13:21 | Internal Med Progress Note ---
<Howard Coreas - Last Filed: 09/23/17 14:43> Date of Encounter: 09/23/17 Time of Encounter: 09:15 - Assessment and plan (1) Septic shock Current Visit: Yes Status: Acute Assessment and plan: Septic shock secondary to proctocolitis as demonstrated on abdominal CT CXR no evidence of acute cardiopulmonary process lactic acid down at 3.3 from 4.8 3L IVF bolus given in ED, BP and HR have become relatively stable Transferred to the floor from ICU this AM. Plan -Zosyn -Flagyl -blood cultures pending -monitor CBC (2) Pancytopenia Current Visit: Yes Status: Acute Assessment and plan: Platelets initially 8K, mary to 38K, today 24K. Initially patient was to receive platelets, pending blood bank restocking supply today. Hgb 9.9>8.1>7.3> 7.9. Will need to continue to monitor Hgb and for signs of bleeding. Patient did receive 2 units platelets yesterday and 1 unit pRBC. Per oncology: For transfusion thresholds, recommending maintaining a platelet count greater than 20,000. If actively bleeding, >50,000. Transfuse 2 units packed blood cells for hemoglobin less than 7. No need for G-CSF currently. (3) Myelodysplasia (myelodysplastic syndrome) Current Visit: Yes Status: Acute Assessment and plan: Pending possible bone marrow transplant at the [facility], appointment with the transplant team on the of this month. Patient followed by Oncology, sees Dr. King at [facility]. (4) Proctocolitis Current Visit: Yes Status: Acute Assessment and plan: Oncology in agreement with current course of empiric coverage with Zosyn and Flagyl. Continue abx. (5) LEXY (acute kidney injury) Current Visit: Yes Status: Acute Assessment and plan: LEXY secondary to sepsis creatinine 2.35>1.75, eGFR 28>40 Plan: monitor renal labs, continue fluid replacement. avoid nephrotoxic agents monitor I&O Patient has urinary catheter. (6) Hypokalemia Current Visit: Yes Status: Acute Assessment and plan: K+ 3.0 this AM. -replaced with PO and IV potassium. -Continue to monitor. (7) DVT prophylaxis Current Visit: No Status: Acute Assessment and plan: SCDs - Time Spent With Patient less than 15 minutes - Subjective Interval history: Patient seen and examined, resting in bed. Notes feeling better overall, breathing improved. Denies chest pain. Noted to be awaiting platelets, as blood bank is out of stock. Platelets 24,000 today. - Constitutional Vitals: Temp Pulse Resp BP Pulse Ox 97.7 F 82 14 122/67 97 09/23/17 11:41 09/23/17 11:41 09/23/17 11:41 09/23/17 11:41 09/23/17 11:13 General appearance: Present: cooperative, A&O X 3, pleasant, no acute distress, answers questions appropriately - Head Head exam: Present: atraumatic, normocephalic - Eye Eye exam: Present: EOMI, sclera anicteric - Neck Neck exam general surgery: Present: full ROM, supple - Respiratory Respiratory exam: Present: decreased breath sounds, CTAB. Absent: accessory muscle use, rales, rhonchi, wheezes - Cardiovascular Cardiovascular exam: Present: RRR, +S1, +S2. Absent: diastolic murmur, gallop, rubs, systolic murmur - GI/Abdominal GI/Abdominal exam: Present: normal bowel sounds, soft, no peritoneal signs. Absent: distended, tenderness - Extremities Exam Extremities exam: Present: warm. Absent: calf tenderness, cyanotic, pedal edema - Neurological Exam Neurological exam: Present: alert, oriented X3, no focal deficits. Absent: facial droop, speech deficit - Skin Skin exam: Present: dry, intact Internal Medicine: Result - Labs CBC & Chem 7: 09/23/17 03:37 09/23/17 03:37 Labs: Short CBC 09/22/17 09/23/17 Range/Units 18:06 03:37 WBC 3.1 L 2.4 L (4.3-11.1) K/mcL Hgb 7.3 L 7.9 L (12.9-16.9) g/dL Hct 20.5 L 22.2 L (37.5-50.1) % Plt Count 38 L 24 L* (140-400) K/mcL Neutrophils # 1.2 L 0.7 L (1.6-8.9) K/mcL BMP 09/22/17 09/23/17 18:06 03:37 Sodium 138 141 Potassium 3.6 3.0 L Chloride 109 H 114 H Carbon Dioxide 18 L 15 L BUN 55 H 52 H Creatinine 2.35 H 1.75 H Glucose 96 80 Calcium 7.6 L 7.3 L - ABG Interpretation ABG results: ABG ABG pH 7.34 pH Units (7.32-7.45) 09/23/17 06:08 ABG pCO2 27 mmHg (35-45) L 09/23/17 06:08 ABG pO2 76 mmHg (85-104) L 09/23/17 06:08 ABG O2 Saturation 95 % (95-98) 09/23/17 06:08 PT/INR, D-dimer PT 12.6 Seconds (9.4-12.1) H 09/22/17 11:35 Consult Discharge Plan - Plan Referrals: Kev Lenz MD [Primary Care Provider] - <Niranjan Knox - Last Filed: 09/23/17 17:20> Date of Encounter: 09/23/17 - Constitutional Vitals: Temp Pulse Resp BP Pulse Ox 98.6 F 77 19 142/69 96 09/23/17 15:16 09/23/17 15:16 09/23/17 15:16 09/23/17 15:16 09/23/17 15:16 Internal Medicine: Result - Labs CBC & Chem 7: 09/23/17 03:37 09/23/17 03:37 Labs: Short CBC 09/22/17 09/23/17 Range/Units 18:06 03:37 WBC 3.1 L 2.4 L (4.3-11.1) K/mcL Hgb 7.3 L 7.9 L (12.9-16.9) g/dL Hct 20.5 L 22.2 L (37.5-50.1) % Plt Count 38 L 24 L* (140-400) K/mcL Neutrophils # 1.2 L 0.7 L (1.6-8.9) K/mcL BMP 09/22/17 09/23/17 18:06 03:37 Sodium 138 141 Potassium 3.6 3.0 L Chloride 109 H 114 H Carbon Dioxide 18 L 15 L BUN 55 H 52 H Creatinine 2.35 H 1.75 H Glucose 96 80 Calcium 7.6 L 7.3 L - ABG Interpretation ABG results: ABG ABG pH 7.34 pH Units (7.32-7.45) 09/23/17 06:08 ABG pCO2 27 mmHg (35-45) L 09/23/17 06:08 ABG pO2 76 mmHg (85-104) L 09/23/17 06:08 ABG O2 Saturation 95 % (95-98) 09/23/17 06:08 PT/INR, D-dimer PT 12.6 Seconds (9.4-12.1) H 09/22/17 11:35 - Attending Attestation I examined this patient and my medical decision-making was reviewed with the Resident Physician on 09/23/17. I agree with the documented findings, disposition and treatment plan as described except to the extent set forth below. Mr Solis has been transferred from ICU early this AM. ICU attending has evaluated patient today. Exam alert Comfortable Heart not tachy No wheeze We will assume full care now and see in AM.
[2017-09-23] MEDS ORDERED: Lidocaine Jelly 11 ml Syringe MM ONE (17:39)
[2017-09-23] MEDS ORDERED: *HR* LORazepam 0.5 MG TABLET PO PRN (17:41)
[2017-09-23] MEDS ORDERED: Ringers Solution, Lactated 1,000 ML IVC SCH (17:45)
[2017-09-23 19:09] LABS: Hematocrit 22.4 % (37.5-50.1); Immature Platelets 2.1 % (1.1-6.1); Mean Corpuscular HGB Conc 35.7 g/dL (31.6-35.5); Mean Corpuscular Hemoglobin 33.8 pg (28.0-33.3); Mean Corpuscular Volume 94.5 fL (83.0-100.0); Mean Platelet Volume 10.4 fL (9.4-12.4); Red Blood Count 2.37 M/mcL (4.19-5.50)
[2017-09-23] MEDS ORDERED: traZODone 50 MG TABLET PO SCH (21:00)
[2017-09-24] MEDS: MetroNIDAZOLE 500 MG/100 ML 500 MG/100 ML BAG IVPB SCH ×2 (00:04→09:09)
[2017-09-24 06:44] LABS: Mean Corpuscular Volume 93.9 fL (83.0-100.0)
[2017-09-24 06:46] LABS: Hematocrit 21.6 % (37.5-50.1); Hemoglobin 7.7 g/dL (12.9-16.9); Immature Platelets 1.1 % (1.1-6.1); Mean Corpuscular HGB Conc 35.6 g/dL (31.6-35.5); Mean Corpuscular Hemoglobin 33.5 pg (28.0-33.3)
[2017-09-24 06:59] LABS: BUN/Creatinine Ratio 34 (6-26); Blood Urea Nitrogen 42 mg/dL (8-23); Calcium 8.3 mg/dL (8.6-10.3); Carbon Dioxide 18 mEq/L (23-29); Chloride 118 mEq/L (98-107); Glucose 97 mg/dL (70-105); Osmolality,Calculated 310 (280-300); Potassium 3.3 mEq/L (3.5-5.1); Sodium 145 mEq/L (136-145); eGFR For African Americans > 60 (> 60); eGFR For Non-African Americans 59 (> 60)
[2017-09-24 07:33] LABS: Platelet Count 19 K/mcL (140-400)
[2017-09-24 07:45] LABS: Lymphocytes # 0.8 K/mcL (0.6-4.6); Monocytes # 0.4 K/mcL (0.0-1.3); Neutrophils # 0.9 K/mcL (1.6-8.9); Platelet Estimate Marked Decrease (Normal)
[2017-09-24] MEDS: *HR* OxyCODONE/APAP 10/325 TABLET PO PRN (09:07)
[2017-09-24] MEDS: Piperacillin/Tazobactam 3.375 GM in 0.9 % Sodium Chloride Mini Bag 100 ML IVPB SCH ×2 (09:08)
[2017-09-24] MEDS ORDERED: 0.9 % Sodium Chloride 250 ML ONE (10:37)
--- NOTE | 2017-09-24 11:30 | Discharge Summary ---
<Howard Coreas - Last Filed: 09/24/17 13:16> Orders not resulted at time of discharge: Pending orders 09/22/17 23:00 Culture,Urine [RM] Routine 09/24/17 10:37 Lactic Acid Stat Date of Encounter: 09/24/17 Time of Encounter: 11:00 - Discharge Diagnosis (1) Proctocolitis Priority: Primary Status: Acute (2) Septic shock Priority: Secondary Status: Resolved (3) Pancytopenia Priority: Secondary Status: Acute (4) Myelodysplasia (myelodysplastic syndrome) Priority: Secondary Status: Acute (5) LEXY (acute kidney injury) Priority: Secondary Status: Acute (6) Hypokalemia Priority: Secondary Status: Acute (7) DVT prophylaxis Priority: Secondary Status: Acute Hospital course: -Mr. Solis is a 61 year old male with a past medical history of myelodysplastic syndrome and CLL that was admitted to [facility] for proctocolitis with concerns for septic shock initially. Patient presented with cough, abdominal pain, diarrhea x 3-4 days. In the ED patient's platelets were 8,000 and Lactic acid was 4.8. Patient arrived on the , was transfused 1 units pRBC and 2 units of platelets upon arrival. In addition patient was started on IVFs, Zosyn(day2), and Flagyl(day3). Patient received another two units of platelets on the , raising platelet count to 44,000, however today on the platelet count has drop to 19,000. Patient appears to be maintaining stable vitals with the addition of 2L supplemental O2. Of note occult stool test was postivit, Hgb 9.9 initially, but maintained in the the 7-8 range. In addition, patient with hypokalemia, replacement while inpatient as needed. -CT abd/pelvis IMPRESSION: Circumferential low-attenuation wall thickening involving distal sigmoid colon and rectum with adjacent fat stranding concerning for nonspecific infectious or inflammatory proctocolitis. No evidence for obstruction. Small volume dependent extraperitoneal free fluid in the pelvis may be reactive relating to the proctocolitis noted above. Gomez catheter within the urinary bladder.Mild diffuse circumferential wall thickening to the urinary bladder. -Patient and family requesting transfer to the [facility] for higher level of care and to be closer to patient's oncology team. Transfer accepted by Parul Scott/Onc triage physician, I was notified of acceptance at 12:10. [facility] requesting C. Diff testing as patient is having worsening, more frequent stool. Discharge discussed with: patient, family, nurse - Time Spent with Patient Total time spent providing and/or coordinating discharge services: Greater than 30 minutes - Discharge Medications Home Medications: Buspirone HCl [Buspar] 10 mg PO BID 03/14/17 [History] Ibuprofen [Advil] 400 mg PO Q6H PRN 03/14/17 [History] Lovastatin [Lovastatin] 40 mg PO HS 03/14/17 [History] Trazodone HCl 100 mg PO HS 03/14/17 [History] Magic Mouthwash [Magic Mouthwash BLM] 10 ml PO QID PRN #240 ml 05/24/17 [Rx] Nystatin [Nystatin Suspension] 500,000 units PO QID PRN #120 ml 05/24/17 [Rx] Ondansetron [Zofran] 8 mg PO Q8HR PRN #90 tablet 05/24/17 [Rx] Prochlorperazine Maleate [Compazine] 10 mg PO Q6HR PRN #90 tablet 05/24/17 [Rx] Oxycodone HCl [Oxaydo] 10 mg PO Q6H PRN 08/16/17 [History] Docusate [Colace] 100 mg PO BID #60 capsule 09/20/17 [Rx] Polyethylene Glycol 3350 [MiraLAX] 17 gm PO DAILY #30 powd.pack 09/21/17 [Rx] Allergies/Adverse Reactions: 3 Allergy/AdvReac Type Severity Reaction Status Date / Time No Known Allergies Allergy Verified 09/11/17 13:08 Date of admission: 09/22/17 16:44 Primary care physician: Kev Lenz MD Discharging clinician: Niranjan Knox Anticipated date of discharge: 09/24/17 - Constitutional Vitals: Temp Pulse Resp BP Pulse Ox 98.0 F 78 18 109/57 98 09/24/17 10:58 09/24/17 10:58 09/24/17 10:58 09/24/17 10:58 09/24/17 10:58 General appearance: Present: cooperative, mild distress, A&O X 3, pleasant, answers questions appropriately - Head Head exam: Present: atraumatic, normocephalic - Eye Eye exam: Present: EOMI, sclera anicteric - Neck Neck exam general surgery: Present: full ROM, lymphadenopathy, supple, trachea midline - Respiratory Respiratory exam: Present: decreased breath sounds, CTAB. Absent: accessory muscle use, rales, rhonchi, wheezes - Cardiovascular Cardiovascular exam: Present: RRR, +S1, +S2. Absent: diastolic murmur, gallop, rubs, systolic murmur - GI/Abdominal GI/Abdominal exam: Present: normal bowel sounds, soft, tenderness (mild- moderate diffuse abdominal tenderness). Absent: distended - Extremities Exam Extremities exam: Present: warm. Absent: calf tenderness, cyanotic, pedal edema - Neurological Exam Neurological exam: Present: alert, oriented X3, no focal deficits. Absent: facial droop, speech deficit - Skin Skin exam: Present: dry, intact - Patient Status Disposition: Transfer Short-Term Hosp Condition: Serious Overall status at discharge: patient is not back to baseline - Discharge Instructions Follow Up With: Kev Lenz MD [Primary Care Provider] - <Niranjan Knox - Last Filed: 09/24/17 15:37> Orders not resulted at time of discharge: Pending orders 09/22/17 23:00 Culture,Urine [RM] Routine 09/24/17 10:37 Lactic Acid Stat Date of Encounter: 09/24/17 - Discharge Diagnosis (1) Lactic acidosis Priority: Primary Status: Acute (2) Septic shock Status: Resolved (3) Proctocolitis Status: Acute (4) Pancytopenia Status: Chronic (5) Myelodysplasia (myelodysplastic syndrome) Status: Chronic (6) Hypokalemia Status: Acute (7) Acute retention of urine Priority: Secondary Status: Acute Hospital course: Mr. Solis is a 61 year old male - Time Spent with Patient Total time spent providing and/or coordinating discharge services: 38min Date of admission: 09/22/17 16:44 Primary care physician: Kev Lenz MD - Constitutional Vitals: Temp Pulse Resp BP Pulse Ox 98.0 F 87 20 143/59 98 09/24/17 10:58 09/24/17 12:53 09/24/17 12:49 09/24/17 12:49 09/24/17 12:49 - Attending Attestation I examined this patient and my medical decision-making was reviewed with the Resident Physician on 09/24/17. I agree with the documented findings, disposition and treatment plan as described except to the extent set forth below. Mr Solis has been admitted for acute proctocolitis and pancytopenia. He continued to have issues with hx platelets and anemia as well as persistent diarrhea. He remains afebrile. His family requested transfer to [facility] to be closer to his oncology team and larger supply of blood products than we have. He is stable for discharge/transfer at this time. Exam alert Comfortable No wheeze Not tachycardic Plan D/C to [facility].
[2017-09-24 12:51] VITALS: BP 143/59
[2017-09-24] MEDS: Ondansetron 4 MG/2 ML VIAL IVP PRN (14:42)
--- NOTE | 2017-09-25 06:21 | Electrocardiograph Report ---
[facility] Test Date: 2017-09-22 Pat Name: Kervin Solis Department: 104 Room: 2N11 Gender: Palliative Care Nurse Practitioner: TMBoaz : 1955 Requested By: Onesimo [place] Order Number: [id number] Reading MD: Shady Zambrano DO Measurements Intervals [place] Rate: 109 P: 136 CT: 114 QRS: 68 QRSD: 94 T: 38 QT: 331 QTc: 395 Interpretive Statements SINUS TACHYCARDIA WITH SHORT CT INTERVAL ABNORMAL RHYTHM ECG Electronically Signed On 09-25-2017 6:20:07 EST by Shady Zambrano DO
== END 2017-09-24 15:02 | disposition short-term general hospital (02) | DRG 871 ==
LOC: EMEROO 11:13 → ICNU 16:44 → SUATTDRO 16:44 → ICNU 17:21 → 2NNU 09-23 04:53
PROVIDERS: ADMIT Internal Medicine Pulmonary Disease; ATTEND Internal Medicine